=== PATIENT | male | born 1935 | race Caucasian/White ===

== ENCOUNTER 2019-12-08 13:11 | Emergency (ER) | payer MEDICARE, OTHER, SELFPAY ==
[2019-12-08 13:12] VITALS: BP 128/66; PULSE 76; RESP 20; TEMP 36.6; O2SAT 96; BMI 23.1
--- NOTE | 2019-12-08 13:36 | W.ED.WEAKNES ---
HPI - Weakness General: Chief complaint: Weakness Stated complaint: General Weakness Time Seen by Provider: 12/08/19 13:36 Source: patient Mode of arrival: ambulatory Limitations: no limitations History of Present Illness: HPI Narrative: Patient comes in by EMS for concerns of weakness. Patient reports that his home health nurse sent him over to be evaluated because he was acting different. Patient denies any concerns. Patient is chronically ill and lives at home with his son and his . His at this time though is in a detention recovering from a broken hip. Review of Systems General: Reports: 10 or more systems reviewed and unremarkable except in HPI and below Neuro: Reports: weakness in extremities PFSH ED PFSH: Statuses (acute, chronic, etc) shown below reflect problem list status as previously entered and may not be historically accurate Social History Smoking and tobacco status: never smoked Physical Exam Const: COMMON NORMALS: no apparent distress and oriented x3 GENERAL APPEARANCE: cooperative HENMT: COMMON NORMALS: normocephalic, external ears normal, EAC's normal, TM's normal bilaterally and external nose normal HEAD & SCALP: normal to inspection and normocephalic FACE & SINUS: normal facial exam NOSE: external nose normal GENERAL EAR: hearing not grossly impaired EXTERNAL EAR: Yes external ears normal EXTERNAL AUDITORY CANAL: EAC's normal TYMPANIC MEMBRANE: TM's normal bilaterally MOUTH: oral and palatal mucosa normal THROAT: posterior oropharynx normal Eye: COMMON NORMALS: PERRL and EOMs intact bilaterally PUPIL: Yes PERRL Neck/C-Spine: COMMON NORMALS: full ROM and no lymphadenopathy Lymph: LYMPHATIC: no lymphedema noted Chest: COMMONS NORMALS: inspection of chest normal and palpation of chest normal Resp: COMMON NORMALS: normal respiratory effort and clear to auscultation bilaterally AUSCULTATION: clear to auscultation bilaterally Cardio: COMMON NORMALS: regular rate and regular rhythm RATE: regular rate RHYTHM: regular rhythm GI: COMMON NORMALS: normal to inspection, nondistended, normoactive bowel sounds and non-tender : COMMON NORMALS: Yes no CVA tenderness BLADDER/KIDNEY EXAM: Yes no CVA tenderness Back/Pelvis: COMMON NORMALS: no CVA tenderness and thoracic and lumbar spine normal to inspection Extremity: NARRATIVE EXTREMITY EXAM: no swelling, lower extremity are weak bilaterally. wjw GENERAL: No edema Neuro: COMMON NORMALS: oriented x3, moves all extremities and no focal motor deficits Psych: COMMON NORMALS: mental status grossly normal and cooperative Skin: COMMON NORMALS: no rashes or lesions noted GENERAL SKIN EXAM: no rashes or lesions noted Course ED course: 1704, reviewed with Dayday Díaz, agreed to resume care of patient for completion of services. wjw Vital Signs: Vital signs: Vital Signs Temperature 97.9 F 12/08/19 13:12 Pulse Rate 76 12/08/19 13:12 Respiratory Rate 20 H 12/08/19 13:12 Blood Pressure 128/66 12/08/19 13:12 Pulse Oximetry 96 12/08/19 13:12 MDM - Weakness Lab Data: Labs: Lab Results 12/08/19 12/08/19 12/08/19 Range/Units 13:50 13:50 13:50 WBC 6.7 (4.0-10.0) 10^3/ uL RBC 3.71 L (4.1-5.3) 10^6/u L Hgb 12.2 (11.7-16.6) g/dL Hct 36.5 L (42.0-52.0) % MCV 98.4 H (80-94) fL MCH 32.9 (28.0-34.0) pg MCHC 33.4 (30.0-36.0) g/dL RDW 12.8 (12.1-15.1) % Plt Count 189 (130-400) 10^3/c mm MPV 9.9 (7.4-10.4) fL Neut % (Auto) 52.6 % Lymph % (Auto) 39.2 % [place] % (Auto) 6.6 % Eos % (Auto) 1.1 % Baso % (Auto) 0.3 % Neut # (Auto) 3.5 (1.8-7.7) 10^3/u L Lymph # (Auto) 2.6 (0.8-4.8) 10^3/u L [place] # (Auto) 0.4 (0.2-0.9) 10^3/u L Eos # (Auto) 0.1 (0.0-0.8) 10^3/u L Baso # (Auto) 0.0 (0.0-0.1) 10^3/u L Nucleated RBC % (a uto) 0 % Nucleated RBCs # 0.0 /100WBC Sodium 138 (136-145) mmol/L Potassium 4.3 (3.5-5.1) mmol/L Chloride 99 (98-107) mmol/L Carbon Dioxide 26 (22-29) mmol/L Anion Gap 17.3 (5-19) BUN 25 H (8-23) mg/dL Creatinine 1.1 (0.7-1.2) mg/dL Glucose 106 (74-106) mg/dL Lactic Acid (0.5-2.2) mmol/L Lactate 2.9 H (0.5-2.2) mmol/L Calcium 9.6 (8.8-10.2) mg/Dl Total Bilirubin 0.3 (0.15-1.2) mg/dL AST 15 (0-40) U/L ALT 12 (0-41) U/L Alkaline Phosphata se 44 (40-130) IU/L Troponin T Baselin e (0-15) ng/mL Troponin T 120 Min [place] (0-15) ng/mL Delta Troponin T (0-10) ABS# Total Protein 6.8 (6.6-8.7) g/dL Albumin 3.9 (3.5-5.2) g/dL Globulin 2.9 (1.3-4.6) g/dL Urine Color (Yellow) Urine Appearance (CLEAR) Urine pH (5-7) Ur Specific Gravit y (1.005-1.030) Urine Protein (Negative) Urine Glucose (UA) (Normal) Urine Ketones (Negative) Urine Occult Blood (Negative) Urine Nitrate (Negative) Urine Bilirubin (NEGATIVE) Urine Urobilinogen (Negative) mg/dL Ur Leukocyte Mayra ase (Negative) Urine RBC (0-2) /hpf Urine WBC (0-5) /hpf Ur Squamous Epith Cells (0-5) Ur Transition Epit h Cell /hpf Triple Phos Kiana ls /hpf Urine Bacteria (NONE) 12/08/19 12/08/19 12/08/19 Range/Units 13:50 14:41 15:44 WBC (4.0-10.0) 10^3/ uL RBC (4.1-5.3) 10^6/u L Hgb (11.7-16.6) g/dL Hct (42.0-52.0) % MCV (80-94) fL MCH (28.0-34.0) pg MCHC (30.0-36.0) g/dL RDW (12.1-15.1) % Plt Count (130-400) 10^3/c mm MPV (7.4-10.4) fL Neut % (Auto) % Lymph % (Auto) % [place] % (Auto) % Eos % (Auto) % Baso % (Auto) % Neut # (Auto) (1.8-7.7) 10^3/u L Lymph # (Auto) (0.8-4.8) 10^3/u L [place] # (Auto) (0.2-0.9) 10^3/u L Eos # (Auto) (0.0-0.8) 10^3/u L Baso # (Auto) (0.0-0.1) 10^3/u L Nucleated RBC % (a uto) % Nucleated RBCs # /100WBC Sodium (136-145) mmol/L Potassium (3.5-5.1) mmol/L Chloride (98-107) mmol/L Carbon Dioxide (22-29) mmol/L Anion Gap (5-19) BUN (8-23) mg/dL Creatinine (0.7-1.2) mg/dL Glucose (74-106) mg/dL Lactic Acid 3.0 H (0.5-2.2) mmol/L Lactate (0.5-2.2) mmol/L Calcium (8.8-10.2) mg/Dl Total Bilirubin (0.15-1.2) mg/dL AST (0-40) U/L ALT (0-41) U/L Alkaline Phosphata se (40-130) IU/L Troponin T Baselin e 54 H (0-15) ng/mL Troponin T 120 Min [place] 44.69 H (0-15) ng/mL Delta Troponin T -9.31 L (0-10) ABS# Total Protein (6.6-8.7) g/dL Albumin (3.5-5.2) g/dL Globulin (1.3-4.6) g/dL Urine Color (Yellow) Urine Appearance (CLEAR) Urine pH (5-7) Ur Specific Gravit y (1.005-1.030) Urine Protein (Negative) Urine Glucose (UA) (Normal) Urine Ketones (Negative) Urine Occult Blood (Negative) Urine Nitrate (Negative) Urine Bilirubin (NEGATIVE) Urine Urobilinogen (Negative) mg/dL Ur Leukocyte Mayra ase (Negative) Urine RBC (0-2) /hpf Urine WBC (0-5) /hpf Ur Squamous Epith Cells (0-5) Ur Transition Epit h Cell /hpf Triple Phos [place]iana ls /hpf Urine Bacteria (NONE) 12/08/19 Range/Units 16:36 WBC (4.0-10.0) 10^3/ uL RBC (4.1-5.3) 10^6/u L Hgb (11.7-16.6) g/dL Hct (42.0-52.0) % MCV (80-94) fL MCH (28.0-34.0) pg MCHC (30.0-36.0) g/dL RDW (12.1-15.1) % Plt Count (130-400) 10^3/c mm MPV (7.4-10.4) fL Neut % (Auto) % Lymph % (Auto) % [place] % (Auto) % Eos % (Auto) % Baso % (Auto) % Neut # (Auto) (1.8-7.7) 10^3/u L Lymph # (Auto) (0.8-4.8) 10^3/u L [place] # (Auto) (0.2-0.9) 10^3/u L Eos # (Auto) (0.0-0.8) 10^3/u L Baso # (Auto) (0.0-0.1) 10^3/u L Nucleated RBC % (a uto) % Nucleated RBCs # /100WBC Sodium (136-145) mmol/L Potassium (3.5-5.1) mmol/L Chloride (98-107) mmol/L Carbon Dioxide (22-29) mmol/L Anion Gap (5-19) BUN (8-23) mg/dL Creatinine (0.7-1.2) mg/dL Glucose (74-106) mg/dL Lactic Acid (0.5-2.2) mmol/L Lactate (0.5-2.2) mmol/L Calcium (8.8-10.2) mg/Dl Total Bilirubin (0.15-1.2) mg/dL AST (0-40) U/L ALT (0-41) U/L Alkaline Phosphata se (40-130) IU/L Troponin T Baselin e (0-15) ng/mL Troponin T 120 Min [place] (0-15) ng/mL Delta Troponin T (0-10) ABS# Total Protein (6.6-8.7) g/dL Albumin (3.5-5.2) g/dL Globulin (1.3-4.6) g/dL Urine Color Yellow (Yellow) Urine Appearance Cloudy (CLEAR) Urine pH 8 H (5-7) Ur Specific Gravit y 1.015 (1.005-1.030) Urine Protein Neg (Negative) Urine Glucose (UA) Norm (Normal) Urine Ketones Negative (Negative) Urine Occult Blood 2+ H (Negative) Urine Nitrate Negative (Negative) Urine Bilirubin Neg (NEGATIVE) Urine Urobilinogen Norm (Negative) mg/dL Ur Leukocyte Mayra ase Trace H (Negative) Urine RBC 0-4 H (0-2) /hpf Urine WBC 15-25 H (0-5) /hpf Ur Squamous Epith Cells Rare (0-5) Ur Transition Epit h Cell 5-10 /hpf Triple Phos Kiana ls 5-10 H /hpf Urine Bacteria 3+ H (NONE) Sign Out Sign Out Data: Sign Out Comment: Awaiting repeat lactate, and UA, if improved should go home, [email or web address] Last updated by Theo Fernandez FNP at 12/08/19 17:02 Coding Level of Care Code ED Internal Grinder for Chg Fwd Exam Problem Focused
--- NOTE | 2019-12-08 13:42 | XR_ITS ---
WS: [id number] Portable AP upright chest, 12/08/2019 Clinical Data: weakness Comparison: Portable chest, 09/06/2018. Findings: No nodules, masses or effusions are seen. The heart is normal. The pulmonary vascularity is not increased. No pneumonia or pneumothorax is seen. The diaphragms are flattened. The aortic arch a nd descending aorta show tortuosity. An anterior cervical disc fusion has been performed at the C6-C7 level. XR/XR chest 1V portable [id number] Impression: Atherosclerosis and hyperinflation.
--- NOTE | 2019-12-08 13:43 | ECG_ITS ---
Measurements Intervals [place] Rate: 73 P: 47 IA: 187 QRS: 27 QRSD: 80 T: 54 QT: 368 QTc: 406 SINUS RHYTHM WITH MARKED SINUS ARRHYTHMIA SEPTAL MYOCARDIAL INFARCTION , OF INDETERMINATE AGE [40+ ms Q WAVE IN V1/V2] Compared to ECG 12/21/2017 19:28:29 Myocardial infarct finding now present Electronically Signed On 12-08-2019 19:28:18 AUDIT PRACTICE INTERN by Molly Quiroz M.D. [email or web address] f
--- NOTE | 2019-12-08 13:44 | CT_ITS ---
WS: [id number] CT HEAD NONCONTRAST HISTORY: AMS TECHNIQUE: Contiguous axial imaging performed through the brain in 2.5 mm imaging. Bone and soft tiss ue windows. Sagittal and coronal reformats reviewed. All CT scans at [facility] use at ast one of these dose optimization techniques: automated exposure control; mA and/or kV adjustment pe r patient size (includes targeted exams where dose is matched to clinical indication); or iterative r econstruction. DLP: 899.24 mGy.cm COMPARISON: None available. No acute intracranial hemorrhage, midline shift or mass effect. Moderate bilateral symmetrical atrophy. Moderate chronic microvascular ischemic disease. CSF collecti on in the posterior fossa crosses the midline. The vermis is still intact. Ventricles: Mild enlargement of the ventricles. No inferior displacement of cerebellar tonsils. Paranasal sinuses: As visualized are clear. Mastoid air cells: Well pneumatized. Calvarium and scalp: Skull is intact with no soft tissue edema or swelling. CT/CT head wo con* [id number] IMPRESSION: 1. No acute intracranial hemorrhage or edema. 2. Moderate atrophy and chronic ischemic disease. 3. Posterior fossa arachnoid cyst.
[2019-12-08 14:06] LABS: Basophils % 0.3 %; Eosinophils # 0.1 10^3/uL (0.0-0.8); Eosinophils % 1.1 %; Hematocrit 36.5 % (42.0-52.0); Hemoglobin 12.2 g/dL (11.7-16.6); Lymphocytes # 2.6 10^3/uL (0.8-4.8); Lymphocytes % 39.2 %; Mean Corpuscular HGB Conc 33.4 g/dL (30.0-36.0); Mean Corpuscular Hemoglobin 32.9 pg (28.0-34.0); Mean Corpuscular Volume 98.4 fL (80-94); Mean Platelet Volume 9.9 fL (7.4-10.4); Monocytes # 0.4 10^3/uL (0.2-0.9); Monocytes % 6.6 %; Neutrophils # 3.5 10^3/uL (1.8-7.7); Neutrophils % 52.6 %; Nucleated Red Blood Cells % 0 %; Platelet Count 189 10^3/cmm (130-400); Red Blood Count 3.71 10^6/uL (4.1-5.3); Red Cell Distribution Width 12.8 % (12.1-15.1); White Blood Count 6.7 10^3/uL (4.0-10.0)
[2019-12-08 14:24] LABS: Alanine Aminotransferase 12 U/L (0-41); Albumin Level 3.9 g/dL (3.5-5.2); Alkaline Phosphatase 44 IU/L (40-130); Anion Gap 17.3 (5-19); Aspartate Amino Transferase 15 U/L (0-40); Blood Urea Nitrogen 25 mg/dL (8-23); Calcium 9.6 mg/Dl (8.8-10.2); Carbon Dioxide 26 mmol/L (22-29); Chloride 99 mmol/L (98-107); Globulin 2.9 g/dL (1.3-4.6); Glucose 106 mg/dL (74-106); Lactate (Lactic Acid level) 2.9 mmol/L (0.5-2.2); Potassium 4.3 mmol/L (3.5-5.1); Sodium 138 mmol/L (136-145); Total Bilirubin 0.3 mg/dL (0.15-1.2); Total Protein 6.8 g/dL (6.6-8.7); Troponin(5th) Baseline 54 ng/mL (0-15)
--- NOTE | 2019-12-08 15:05 | PC.NURSE ---
Restarted normal saline IV fluids EMS initiated prior to arrival per order
--- NOTE | 2019-12-08 15:43 | ECG_ITS ---
Measurements Intervals [place] Rate: 69 P: 56 ND: 183 QRS: 39 QRSD: 88 T: 62 QT: 378 QTc: 407 SINUS RHYTHM WITH MARKED SINUS ARRHYTHMIA SEPTAL MYOCARDIAL INFARCTION , OF INDETERMINATE AGE [40+ ms Q WAVE IN V1/V2] Compared to ECG 12/21/2017 19:28:29 Myocardial infarct finding now present Electronically Signed On 12-08-2019 19:37:00 SOCK LINER by Molly Quiroz M.D. [id number] f
[2019-12-08 16:03] LABS: Troponin 5 2HR 44.69 ng/mL (0-15)
[2019-12-08 16:08] LABS: Troponin 5 2HR Delta -9.31 ABS# (0-10)
[2019-12-08 16:30] LABS: Reflex Lactate Order Y
[2019-12-08 17:05] LABS: Urine Appearance Cloudy (CLEAR); Urine Color Yellow (Yellow)
[2019-12-08 17:06] LABS: Specific Gravity, Urine 1.015 (1.005-1.030); pH Urine 8 (5-7)
[2019-12-08 17:07] LABS: Bilirubin Urine Neg (NEGATIVE); Blood Urine 2+ (Negative); Glucose Urine UA Norm (Normal); Ketones Urine Negative (Negative); Leukocyte Esterase Urine Trace (Negative); Nitrate Urine Negative (Negative); Protein Urine Neg (Negative); RBC Urine 0-4 /hpf (0-2); Squamous Epithelial Cell Urine RARE (0-5); Urobilinogen Urine Norm (Negative); WBC Urine 15-25 /hpf (0-5)
[2019-12-08 17:08] LABS: Add Urine Culture? Yes; Bacteria Urine 3+
--- NOTE | 2019-12-08 19:25 | ED_ITS ---
HPI - Weakness General: Chief complaint: Weakness Stated complaint: General Weakness Time Seen by Provider: 12/08/19 13:36 Source: patient Mode of arrival: ambulatory Limitations: no limitations History of Present Illness: HPI Narrative: Received report from Jhony Fernandez at 1700 waiting a lactate level. Spoke with Dr. Mendoza. Recommends admission. FORMERLY [facility], [facility]–1983 ED PFSH: Statuses (acute, chronic, etc) shown below reflect problem list status as previously entered and may not be historically accurate Social History Smoking and tobacco status: never smoked Course 2 Vital Signs: Vital signs: Vital Signs Temperature 97.9 F 12/08/19 13:12 Pulse Rate 76 12/08/19 13:12 Respiratory Rate 20 H 12/08/19 13:12 Blood Pressure 128/66 12/08/19 13:12 Pulse Oximetry 96 12/08/19 13:12 MDM - Weakness Lab Data: Labs: Lab Results 12/08/19 12/08/19 12/08/19 Range/Units 13:50 13:50 13:50 WBC 6.7 (4.0-10.0) 10^3/ uL RBC 3.71 L (4.1-5.3) 10^6/u L Hgb 12.2 (11.7-16.6) g/dL Hct 36.5 L (42.0-52.0) % MCV 98.4 H (80-94) fL MCH 32.9 (28.0-34.0) pg MCHC 33.4 (30.0-36.0) g/dL RDW 12.8 (12.1-15.1) % Plt Count 189 (130-400) 10^3/c mm MPV 9.9 (7.4-10.4) fL Neut % (Auto) 52.6 % Lymph % (Auto) 39.2 % [place] % (Auto) 6.6 % Eos % (Auto) 1.1 % Baso % (Auto) 0.3 % Neut # (Auto) 3.5 (1.8-7.7) 10^3/u L Lymph # (Auto) 2.6 (0.8-4.8) 10^3/u L [place] # (Auto) 0.4 (0.2-0.9) 10^3/u L Eos # (Auto) 0.1 (0.0-0.8) 10^3/u L Baso # (Auto) 0.0 (0.0-0.1) 10^3/u L Nucleated RBC % (a uto) 0 % Nucleated RBCs # 0.0 /100WBC Sodium 138 (136-145) mmol/L Potassium 4.3 (3.5-5.1) mmol/L Chloride 99 (98-107) mmol/L Carbon Dioxide 26 (22-29) mmol/L Anion Gap 17.3 (5-19) BUN 25 H (8-23) mg/dL Creatinine 1.1 (0.7-1.2) mg/dL Glucose 106 (74-106) mg/dL Lactic Acid (0.5-2.2) mmol/L Lactate 2.9 H (0.5-2.2) mmol/L Calcium 9.6 (8.8-10.2) mg/Dl Total Bilirubin 0.3 (0.15-1.2) mg/dL AST 15 (0-40) U/L ALT 12 (0-41) U/L Alkaline Phosphata se 44 (40-130) IU/L Troponin T Baselin e (0-15) ng/mL Troponin T 120 Min [place] (0-15) ng/mL Delta Troponin T (0-10) ABS# Total Protein 6.8 (6.6-8.7) g/dL Albumin 3.9 (3.5-5.2) g/dL Globulin 2.9 (1.3-4.6) g/dL Urine Color (Yellow) Urine Appearance (CLEAR) Urine pH (5-7) Ur Specific Gravit y (1.005-1.030) Urine Protein (Negative) Urine Glucose (UA) (Normal) Urine Ketones (Negative) Urine Occult Blood (Negative) Urine Nitrate (Negative) Urine Bilirubin (NEGATIVE) Urine Urobilinogen (Negative) mg/dL Ur Leukocyte Mayra ase (Negative) Urine RBC (0-2) /hpf Urine WBC (0-5) /hpf Ur Squamous Epith Cells (0-5) Ur Transition Epit h Cell /hpf Triple Phos Kiana ls /hpf Urine Bacteria (NONE) 12/08/19 12/08/19 12/08/19 Range/Units 13:50 14:41 15:44 WBC (4.0-10.0) 10^3/ uL RBC (4.1-5.3) 10^6/u L Hgb (11.7-16.6) g/dL Hct (42.0-52.0) % MCV (80-94) fL MCH (28.0-34.0) pg MCHC (30.0-36.0) g/dL RDW (12.1-15.1) % Plt Count (130-400) 10^3/c mm MPV (7.4-10.4) fL Neut % (Auto) % Lymph % (Auto) % [place] % (Auto) % Eos % (Auto) % Baso % (Auto) % Neut # (Auto) (1.8-7.7) 10^3/u L Lymph # (Auto) (0.8-4.8) 10^3/u L [place] # (Auto) (0.2-0.9) 10^3/u L Eos # (Auto) (0.0-0.8) 10^3/u L Baso # (Auto) (0.0-0.1) 10^3/u L Nucleated RBC % (a uto) % Nucleated RBCs # /100WBC Sodium (136-145) mmol/L Potassium (3.5-5.1) mmol/L Chloride (98-107) mmol/L Carbon Dioxide (22-29) mmol/L Anion Gap (5-19) BUN (8-23) mg/dL Creatinine (0.7-1.2) mg/dL Glucose (74-106) mg/dL Lactic Acid 3.0 H (0.5-2.2) mmol/L Lactate (0.5-2.2) mmol/L Calcium (8.8-10.2) mg/Dl Total Bilirubin (0.15-1.2) mg/dL AST (0-40) U/L ALT (0-41) U/L Alkaline Phosphata se (40-130) IU/L Troponin T Baselin e 54 H (0-15) ng/mL Troponin T 120 Min [place] 44.69 H (0-15) ng/mL Delta Troponin T -9.31 L (0-10) ABS# Total Protein (6.6-8.7) g/dL Albumin (3.5-5.2) g/dL Globulin (1.3-4.6) g/dL Urine Color (Yellow) Urine Appearance (CLEAR) Urine pH (5-7) Ur Specific Gravit y (1.005-1.030) Urine Protein (Negative) Urine Glucose (UA) (Normal) Urine Ketones (Negative) Urine Occult Blood (Negative) Urine Nitrate (Negative) Urine Bilirubin (NEGATIVE) Urine Urobilinogen (Negative) mg/dL Ur Leukocyte [place]ra ase (Negative) Urine RBC (0-2) /hpf Urine WBC (0-5) /hpf Ur Squamous Epith Cells (0-5) Ur Transition Epit h Cell /hpf Triple Phos Kiana ls /hpf Urine Bacteria (NONE) 12/08/19 Range/Units 16:36 WBC (4.0-10.0) 10^3/ uL RBC (4.1-5.3) 10^6/u L Hgb (11.7-16.6) g/dL Hct (42.0-52.0) % MCV (80-94) fL MCH (28.0-34.0) pg MCHC (30.0-36.0) g/dL RDW (12.1-15.1) % Plt Count (130-400) 10^3/c mm MPV (7.4-10.4) fL Neut % (Auto) % Lymph % (Auto) % [place] % (Auto) % Eos % (Auto) % Baso % (Auto) % Neut # (Auto) (1.8-7.7) 10^3/u L Lymph # (Auto) (0.8-4.8) 10^3/u L [place] # (Auto) (0.2-0.9) 10^3/u L Eos # (Auto) (0.0-0.8) 10^3/u L Baso # (Auto) (0.0-0.1) 10^3/u L Nucleated RBC % (a uto) % Nucleated RBCs # /100WBC Sodium (136-145) mmol/L Potassium (3.5-5.1) mmol/L Chloride (98-107) mmol/L Carbon Dioxide (22-29) mmol/L Anion Gap (5-19) BUN (8-23) mg/dL Creatinine (0.7-1.2) mg/dL Glucose (74-106) mg/dL Lactic Acid (0.5-2.2) mmol/L Lactate (0.5-2.2) mmol/L Calcium (8.8-10.2) mg/Dl Total Bilirubin (0.15-1.2) mg/dL AST (0-40) U/L ALT (0-41) U/L Alkaline Phosphata se (40-130) IU/L Troponin T Baselin e (0-15) ng/mL Troponin T 120 Min [place] (0-15) ng/mL Delta Troponin T (0-10) ABS# Total Protein (6.6-8.7) g/dL Albumin (3.5-5.2) g/dL Globulin (1.3-4.6) g/dL Urine Color Yellow (Yellow) Urine Appearance Cloudy (CLEAR) Urine pH 8 H (5-7) Ur Specific Gravit y 1.015 (1.005-1.030) Urine Protein Neg (Negative) Urine Glucose (UA) Norm (Normal) Urine Ketones Negative (Negative) Urine Occult Blood 2+ H (Negative) Urine Nitrate Negative (Negative) Urine Bilirubin Neg (NEGATIVE) Urine Urobilinogen Norm (Negative) mg/dL Ur Leukocyte Mayra ase Trace H (Negative) Urine RBC 0-4 H (0-2) /hpf Urine WBC 15-25 H (0-5) /hpf Ur Squamous Epith Cells Rare (0-5) Ur Transition Epit h Cell 5-10 /hpf Triple Phos Kiana ls 5-10 H /hpf Urine Bacteria 3+ H (NONE) Discharge Plan Discharge Condition: Stable Referrals: Nneka Lawrence MD [Primary Care Provider] - Coding Level of Care Code ED Coater Slate for Denton Lott
--- NOTE | 2019-12-08 19:43 | ECG_ITS ---
Measurements Intervals [place] Rate: 120 P: TN: 0 QRS: 99 QRSD: 107 T: 61 QT: 329 QTc: 467 ATRIAL FIBRILLATION WITH RAPID VENTRICULAR RESPONSE BORDERLINE RIGHT AXIS DEVIATION LOW QRS VOLTAGE IN EXTREMITY LEADS INCOMPLETE RIGHT BUNDLE BRANCH BLOCK Compared to ECG 12/08/2019 16:11:09 Low QRS voltage now present Incomplete right bundle-branch block now present Sinus rhythm no longer present Sinus arrhythmia no longer present Myocardial infarct finding no longer present Electronically Signed On 12-09-2019 13:41:54 FOREIGN DIPLOMAT by Anaya Bhatia M.D. [id number]
[2019-12-08 21:02] LABS: Troponin 5 6HR 56.27 ng/L (0-15); Troponin 5 6HR Delta 2.27 ng/L (0-12)
== END 2019-12-08 20:09 | disposition left against medical advice (07) ==
PROVIDERS: Emergency Provider Nurse Practitioner Family; Family Provider Family Medicine; PCP Family Medicine
DX: R53.1 Weakness (principal)
CPT/HCPCS: 36415; 70450; 71045; 80053; 81001; 83605; 84484; 85025; 87040; 87077; 87086; 87186; 93005; 99282

== ENCOUNTER → 2020-01-08 09:58 | Outpatient (BNVA) | payer MEDICARE, OTHER, SELFPAY | PROVIDERS: Family Provider Family Medicine; PCP Family Medicine; Visit Provider Family Medicine | DX: I50.9 Heart failure, unspecified (principal); I50.42 Chronic combined systolic (congestive) and diastolic (congestive) heart failure; E11.42 Type 2 diabetes mellitus with diabetic polyneuropathy; Z79.4 Long term (current) use of insulin; N18.3 Chronic kidney disease, stage 3 (moderate); G62.9 Polyneuropathy, unspecified; G25.81 Restless legs syndrome; L89.151 Pressure ulcer of sacral region, stage 1; R29.898 Other symptoms and signs involving the musculoskeletal system | CPT/HCPCS: 80048; 83036 ==

== ENCOUNTER → 2020-02-10 13:27 | Outpatient (BNVA) | payer MEDICARE, OTHER, SELFPAY | PROVIDERS: Family Provider Family Medicine; PCP Family Medicine; Visit Provider Family Medicine | DX: E11.9 Type 2 diabetes mellitus without complications (principal); I50.9 Heart failure, unspecified; G62.9 Polyneuropathy, unspecified; R30.0 Dysuria; G25.81 Restless legs syndrome; I11.0 Hypertensive heart disease with heart failure | CPT/HCPCS: 80053; 81000; 87077; 87086; 87186 ==

== ENCOUNTER → 2020-04-12 13:25 | Outpatient (BNVA) | payer MEDICARE, OTHER, SELFPAY | PROVIDERS: Family Provider Family Medicine; PCP Family Medicine; Visit Provider Family Medicine | DX: R30.0 Dysuria; G25.81 Restless legs syndrome; E11.42 Type 2 diabetes mellitus with diabetic polyneuropathy; Z79.4 Long term (current) use of insulin; I50.42 Chronic combined systolic (congestive) and diastolic (congestive) heart failure; J44.9 Chronic obstructive pulmonary disease, unspecified; N18.3 Chronic kidney disease, stage 3 (moderate); F32.9 Major depressive disorder, single episode, unspecified; R63.0 Anorexia; I13.0 Hypertensive heart and chronic kidney disease with heart failure and stage 1 through stage 4 chronic kidney disease, or unspecified chronic kidney disease; E11.22 Type 2 diabetes mellitus with diabetic chronic kidney disease | CPT/HCPCS: 80053; 80061; 83036; 85025 ==

== ENCOUNTER → 2020-05-17 10:05 | Outpatient (BNVA) | payer MEDICARE, OTHER, SELFPAY | PROVIDERS: Family Provider Family Medicine; PCP Family Medicine; Visit Provider Family Medicine | DX: N30.01 Acute cystitis with hematuria (principal); N18.3 Chronic kidney disease, stage 3 (moderate); E11.42 Type 2 diabetes mellitus with diabetic polyneuropathy; Z79.4 Long term (current) use of insulin; I50.42 Chronic combined systolic (congestive) and diastolic (congestive) heart failure; R63.0 Anorexia; F32.1 Major depressive disorder, single episode, moderate; E11.22 Type 2 diabetes mellitus with diabetic chronic kidney disease | CPT/HCPCS: 80053; 81000; 87077; 87086; 87186 ==

== ENCOUNTER → 2020-06-29 14:45 | Outpatient (BNVA) | payer MEDICARE, OTHER, SELFPAY | PROVIDERS: Family Provider Family Medicine; PCP Family Medicine; Visit Provider Nurse Practitioner Family | DX: R33.9 Retention of urine, unspecified (principal); N39.0 Urinary tract infection, site not specified; N39.41 Urge incontinence | CPT/HCPCS: 80053; 81001; 87077; 87086 ==

== ENCOUNTER → 2020-07-12 13:35 | Outpatient (BNVA) | payer MEDICARE, OTHER, SELFPAY | PROVIDERS: Family Provider Family Medicine; PCP Family Medicine; Visit Provider Family Medicine | DX: E11.42 Type 2 diabetes mellitus with diabetic polyneuropathy (principal); R30.0 Dysuria; I13.0 Hypertensive heart and chronic kidney disease with heart failure and stage 1 through stage 4 chronic kidney disease, or unspecified chronic kidney disease; I50.42 Chronic combined systolic (congestive) and diastolic (congestive) heart failure; N18.3 Chronic kidney disease, stage 3 (moderate); G25.81 Restless legs syndrome; E11.22 Type 2 diabetes mellitus with diabetic chronic kidney disease; Z79.4 Long term (current) use of insulin; J44.9 Chronic obstructive pulmonary disease, unspecified; R29.898 Other symptoms and signs involving the musculoskeletal system; M54.10 Radiculopathy, site unspecified | CPT/HCPCS: 80048; 83036 ==

== ENCOUNTER → 2020-10-11 13:32 | Outpatient (BNVA) | payer MEDICARE, OTHER, SELFPAY | PROVIDERS: Family Provider Family Medicine; PCP Family Medicine; Visit Provider Family Medicine | DX: E11.42 Type 2 diabetes mellitus with diabetic polyneuropathy (principal); E11.9 Type 2 diabetes mellitus without complications; Z79.4 Long term (current) use of insulin | CPT/HCPCS: 80048; 83036 ==

== ENCOUNTER 2020-12-15 13:45 | Outpatient (CLI) | payer MEDICARE, OTHER, SELFPAY | END 2020-12-15 13:46 | disposition home or self-care (01) | LOC: WOUND 13:46 | PROVIDERS: Family Provider Family Medicine; PCP Family Medicine; Visit Provider Thoracic Surgery (Cardiothoracic Vascular Surgery) | DX: E11.621 Type 2 diabetes mellitus with foot ulcer (principal); L97.412 Non-pressure chronic ulcer of right heel and midfoot with fat layer exposed | CPT/HCPCS: 11042; G0463 ==

== ENCOUNTER 2020-12-27 11:39 | Outpatient (CLI) | payer MEDICARE, OTHER, SELFPAY ==
--- NOTE | 2020-12-27 | USCV_ITS ---
Martin Schultz Age: 85 Gender: M : 1935 Exam Date: 12/27/2020 12:10 Ordering Phys: Theo Cisneros MD (Andy) Technologist: Janette Jackson Exam Location: [facility] [place] Indication: FOOT ULCER Risk Factors: Previous Vascular Surgery: RIGHT LEFT BP: 154.0 / 77.00 BP: 153.0/ 83.00 0 0 Waveform Velocity (cm/s) Velocity (cm/s) Waveform Triphasic 51.1 Iliac Prox 73.0 Biphasic Biphasic 56.0 Iliac Mid 62.8 Biphasic Biphasic 49.8 Iliac Distal 58.2 Biphasic Biphasic 42.8 M60A2 ARMOR CREWMAN 56.2 Biphasic Biphasic 70.1 SFA Prox 59.6 Biphasic Biphasic 79.5 SFA Mid 117.5 Biphasic Biphasic SFA Dist Biphasic 56.4 70.0 Biphasic 43.2 POP 41.4 Biphasic Monophasic 53.1 DIMENSION STONE QUARRY SUPERVISOR 271.5 Monophasic Monophasic 86.7 DPA 24.4 Monophasic 0.9 GIRISH 0.4 FINDINGS RT DIMENSION STONE QUARRY SUPERVISOR >220 RT DPA 144 LT DIMENSION STONE QUARRY SUPERVISOR >220 LT DPA 56 Borderline low GIRISH on the right side of 0.9 Markedly diminished resting GIRISH of 0.4 on the left side CONCLUSIONS 1. Abnormal GIRISH on the left side, suggesting severe peripheral artery disease, possibly involving the infrapopliteal vessels on the left side. 2. Borderline low resting GIRISH on the right side, suggestive of mild peripheral artery disease Compared to the study from 04/19/2017, there is significant decline in the resting GIRISH on the left side Dr Molly Quiroz MD [facility] Edited by: CV Filler Spreader (Electronically Signed) Final Date: 27 December 2020 19:29 Amended: 28 December 2020 10:31 C
== END 2020-12-27 11:40 | disposition home or self-care (01) ==
LOC: US 11:41
PROVIDERS: PCP Family Medicine; Visit Provider Thoracic Surgery (Cardiothoracic Vascular Surgery)
DX: E11.621 Type 2 diabetes mellitus with foot ulcer (principal)
CPT/HCPCS: 93925

== ENCOUNTER 2020-12-29 14:45 | Outpatient (CLI) | payer MEDICARE, OTHER, SELFPAY | END 2020-12-29 14:46 | disposition home or self-care (01) | LOC: WOUND 14:46 | PROVIDERS: PCP Family Medicine; Visit Provider Thoracic Surgery (Cardiothoracic Vascular Surgery) | DX: E11.621 Type 2 diabetes mellitus with foot ulcer (principal); L97.412 Non-pressure chronic ulcer of right heel and midfoot with fat layer exposed; S80.812A Abrasion, left lower leg, initial encounter; X58.XXXA Exposure to other specified factors, initial encounter | CPT/HCPCS: 11042; L3260 ==

== ENCOUNTER 2021-01-19 13:49 | Outpatient (CLI) | payer MEDICARE, OTHER, SELFPAY | END 2021-01-19 13:50 | disposition home or self-care (01) | LOC: WOUND 13:51 | PROVIDERS: PCP Family Medicine; Visit Provider Thoracic Surgery (Cardiothoracic Vascular Surgery) | DX: E11.621 Type 2 diabetes mellitus with foot ulcer (principal); L97.412 Non-pressure chronic ulcer of right heel and midfoot with fat layer exposed | CPT/HCPCS: 11042 ==

== ENCOUNTER → 2021-01-20 11:36 | Outpatient (BNVA) | payer MEDICARE, OTHER, SELFPAY | PROVIDERS: PCP Family Medicine; Visit Provider Family Medicine | DX: I50.9 Heart failure, unspecified (principal); Z86.718 Personal history of other venous thrombosis and embolism; G62.9 Polyneuropathy, unspecified; I10 Essential (primary) hypertension; E11.9 Type 2 diabetes mellitus without complications; R63.0 Anorexia; F32.9 Major depressive disorder, single episode, unspecified; E11.42 Type 2 diabetes mellitus with diabetic polyneuropathy; G25.81 Restless legs syndrome; Z79.4 Long term (current) use of insulin | CPT/HCPCS: 80048; 83036 ==

== ENCOUNTER 2021-01-24 16:43 | Inpatient (IN) | payer MEDICARE, OTHER, SELFPAY ==
[2021-01-24] VITALS (23 sets, daily range): BP systolic 86–99; BP diastolic 45–63; PULSE 81–112; RESP 10–20; TEMP 36.1–36.6; O2SAT 92–99; BMI 25.0
--- NOTE | 2021-01-24 17:12 | XRR_ITS ---
PROCEDURE INFORMATION: Exam: XR Chest Exam date and time: 01/24/2021 5:28 PM Age: 85 years old Clinical indication: Cough and dyspnea; Additional info: Dyspnea/cough TECHNIQUE: Imaging protocol: XR of the chest Views: 1 view. COMPARISON: CR XR chest 1V portable [id number] 12/08/2019 2:13 PM FINDINGS: Lungs: Bilateral lower lung areas of scarring and or atelectasis. Pleural spaces: Unremarkable. No pleural effusion. No pneumothorax. Heart/Mediastinum: Cardiomediastinal silhouette is similar. Vasculature: Calcified thoracic aorta. Bones/joints: Plate fixation lower cervical spine. Surgical changes of the right shoulder. Degenerative changes of the spine. XR/XR chest 1V portable [id number] IMPRESSION: Areas of atelectasis or scarring lower lungs increased since the previous chest.
--- NOTE | 2021-01-24 17:12 | ECG_ITS ---
[facility] Test Date: 2021-01-24 Pat Name: Martin Schultz Department: Room: Gender: Male Motor Tester: : 1935 Requested By: Rohith Dee Order Number: [id number] Ashok MD: Mark Kay M.D. Measurements Intervals [place] Rate: 88 P: 41 UT: 173 QRS: 12 QRSD: 85 T: 60 QT: 356 QTc: 432 Interpretive Statements SINUS RHYTHM WITH OCCASIONAL ECTOPIC PREMATURE COMPLEXES LOW QRS VOLTAGE IN PRECORDIAL LEADS [QRS DEFLECTION < 1.0 mV IN CHEST LEADS] Compared to ECG 12/08/2019 19:58:50 Atrial fibrillation no longer present Incomplete right bundle-branch block no longer present Electronically Signed On 01-24-2021 18:48:30 FILENET P[employer] DEVELOPER by Mark Kay M.D. [id number]
--- NOTE | 2021-01-24 17:14 | CTR_ITS ---
PROCEDURE INFORMATION: Exam: CT Head Without Contrast Exam date and time: 01/24/2021 5:23 PM Age: 85 years old Clinical indication: Altered mental status/memory loss; Additional info: AMS, blood thinners TECHNIQUE: Imaging protocol: Computed tomography of the head without contrast. Total images: 210 Radiation optimization: All CT scans at this facility use at least one of these dose optimization techniques: automated exposure control; mA and/or kV adjustment per patient size (includes targeted exams where dose is matched to clinical indication); or iterative reconstruction. COMPARISON: CT head wo con* [id number] 12/08/2019 4:13 PM RADIATION DOSE METRICS: Total DLP (mGy-cm): 910.05 FINDINGS: Brain: No evidence of active or acute intracranial pathologic process, hemorrhage, or trauma. Moderate small vessel ischemic disease with senile periventricular leukomalacia. Cerebral and cerebellar atrophy with ventricular dilatation not inconsistent with the patient's chronological age. 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 No mass effect. No midline shift. Tiny antecedent lacunar infarction right thalamus. Cerebral ventricles: No obstructive ventriculomegaly. Bones/joints: Unremarkable. No acute fracture. Paranasal sinuses: Visualized sinuses are unremarkable. No fluid levels. Mastoid air cells: Visualized mastoid air cells are well aerated. Soft tissues: Unremarkable. CT/CT head wo con* [id number] IMPRESSION: No evidence of active or acute intracranial pathologic process, hemorrhage, or trauma. Radiation Dose CTDIVOL = (mGy): DLP = 910.05 (mGy-cm)
[2021-01-24 17:29] LABS: Basophils # 0.1 10^3/uL (0.0-0.1); Basophils % 0.5 %; Eosinophils % 0.4 %; Hematocrit 29.1 % (42.0-52.0); Hemoglobin 9.3 g/dL (11.7-16.6); Lymphocytes # 2.9 10^3/uL (0.8-4.8); Lymphocytes % 25.8 %; Mean Corpuscular Hemoglobin 32.2 pg (28.0-34.0); Mean Corpuscular Volume 100.7 fL (80-94); Mean Platelet Volume 10.5 fL (7.4-10.4); Monocytes # 0.6 10^3/uL (0.2-0.9); Neutrophils # 7.55 10^3/uL (1.8-7.7); Neutrophils % 67.8 %; Nucleated Red Blood Cells % 0 %; Platelet Count 251 10^3/cmm (130-400); Red Blood Count 2.89 10^6/uL (4.1-5.3); Red Cell Distribution Width 14.4 % (12.1-15.1); White Blood Count 11.1 10^3/uL (4.0-10.0)
[2021-01-24 17:50] LABS: ABG PCO2 39.2 mmHg (35-45); ABG PH Result 7.38 (7.35-7.45); Alveolar-Arterial Oxygen Gradi 5.2 mmHg (5-10); Arterial Blood Gas Hematocrit 27.6 % (42-52); Base Excess ABG -2.1 mmol/L (-2.0-2.0); Blood Gas Allen Test Pos; Blood Gas Sample Site Brachial, right; Blood Gas Sample Type Arterial; Carboxyhemoglobin 1.3 %THgb (0.4-20.1); HCO3 ABG 22.9 mmol/L (22-26); HGB O2 Sat 91.1 % (95-100); Ionized Calcium Level - ABG 1.3 mmol/L (1.1-1.4); Methemoglobin 0.8 % (0.4-1.5); Oxygen Device ROOM AIR; Oxygen Saturation ABG 93.1; PO2 ABG 62.5 mmHg (80.0-100.0); Potassium Level - ABG 5.2 mmol/L (3.5-5.0)
[2021-01-24 17:51] LABS: Add Urine Microscopic? YES; Bilirubin Urine 1+ (Negative); Blood Urine 2+ (Negative); Glucose Urine UA Norm (Normal); Ketones Urine 1+ (Negative); Leukocyte Esterase Urine 2+ (Negative); Nitrate Urine Negative (Negative); Protein Urine Trace (Negative); Specific Gravity, Urine 1.005 (1.005-1.030); Urine Appearance Cloudy (CLEAR); Urine Color Dark Yellow (Yellow); Urobilinogen Urine 1 mg/dL (Negative); pH Urine 6.5 (5-7)
[2021-01-24 17:52] LABS: Add Urine Culture? Yes; Bacteria Urine 4+ /hpf; WBC Urine TOO NUMEROUS TO CNT /hpf (0-5)
[2021-01-24 18:00] LABS: Ketone (Acetest) Serum Negative (Negative)
--- NOTE | 2021-01-24 18:04 | W.ED.AMS ---
Documented by User: Rohith Hernadez DO 01/28/21 16:38 HPI - Altered Mental Status General: Chief Complaint: Altered Mental Status Stated Complaint: AMS Time Seen by Provider: 01/24/21 17:12 History of Present Illness: HPI narrative: 85-year-old male lives at home with his . Comes in with acute delirium he has chronic underlying dementia beginning worse over the last 1 to 2 days. He is on Eliquis he had a fall earlier today. There is no loss of consciousness. No reported fever cough, however he has aubidly coarse breath sounds. He does have some decubitus ulcers 1 over the sacrum over the distal fifth metatarsal and at the right heel. No fever sweats or chills reported. Urine looked exceptionally infected grossly in the exam room. MD complaint: altered mental status, confusion and weakness Severity: moderate Consistency of symptoms: Getting Worse Associated symptoms: Deny auditory hallucinations, visual hallucinations, delusions, depression, homicidal ideation, racing thoughts or suicidal ideation Review of Systems Const: Denies: fever(s), chills, body aches, change in appetite, fatigue or malaise ENMT: Denies: throat pain, ear or mastoid pain, nasal discharge or nasal congestion Card: Denies: chest pain, edema, dyspnea on exertion or orthopnea Resp: Denies: dyspnea, productive cough or non-productive cough GI: Denies: abdominal pain, nausea, vomiting, hematemesis, coffee ground emesis, diarrhea, constipation, bloating, hematochezia or melena : Denies: flank pain, dysuria, urinary frequency or urinary urgency Skin/Breast: Denies: rash or pruritus Neuro: Reports: confusion and other (Dementia) Psych: Denies: depression, visual hallucinations, auditory hallucinations, suicidal ideation or homicidal ideation [facility] ED PFSH: Medical History (Updated 01/24/21 @ 20:53 by Leyda Lunsford MD) Chronic CHF (congestive heart failure) CKD (chronic kidney disease) Depression, major Hx of deep venous thrombosis Hypertension Neuropathy Recurrent UTI Restless leg syndrome Type 2 diabetes mellitus Urgency incontinence Urinary retention Surgical History H/O neck surgery H/O rotator cuff surgery Family History Mother Cancer Sister Cancer Diabetes Brother Diabetes Father Patient killed Social History Smoking and tobacco status: former smoker Alcohol intake: never Marital status: Current occupational status: retired History of recent travel: No Current gender identity: Male Physical Exam Const: COMMON NORMALS: no acute distress GENERAL APPEARANCE: cooperative and comfortable ORIENTATION/CONSCIOUSNESS: Yes awake, Yes oriented to person, Yes oriented to place and Yes oriented to time HENMT: COMMON NORMALS: normocephalic, atraumatic and hearing grossly normal bilaterally HEAD & SCALP: normocephalic and atraumatic Eye: COMMON NORMALS: Equal, round and reactive pupils present, EOMs intact bilaterally, conjunctivae normal and no scleral icterus CONJUNCTIVA: Yes conjunctivae normal PUPIL: Yes Equal, round and reactive pupils present Neck/C-Spine: COMMON NORMALS: full ROM, no lymphadenopathy, supple and no JVD Lymph: LYMPHATIC: no lymphadenopathy noted and no lymphedema noted Resp: COMMON NORMALS: normal respiratory effort, No retractions, No use of accessory muscles and clear to auscultation bilaterally AUSCULTATION: clear to auscultation bilaterally Cardio: COMMON NORMALS: no JVD, regular rate, regular rhythm and No murmurs present (Cardio) RATE: regular rate RHYTHM: regular rhythm GI: COMMON NORMALS: Soft to palpation and No hepatosplenomegaly present AUSCULTATION: Yes normoactive bowel sounds PALPATION: Yes Soft to palpation, No Tenderness to palpation present (GI), No Guarding due to palpation present (GI) and Yes No hepatosplenomegaly present Extremity: COMMON NORMALS: normal to inspection, capillary refill normal, no clubbing, cyanosis or edema, no calf tenderness and no pedal edema Neuro: SENSORIUM/ORIENTATION: Yes oriented to person, Yes oriented to place and Yes oriented to time Psych: THOUGHT CONTENT: No delusions Skin: COMMON NORMALS: no rashes or lesions noted GENERAL SKIN EXAM: no rashes or lesions noted Course Vital Signs: Vital signs: Vital Signs Temperature 99.3 F 01/28/21 12:00 Pulse Rate 101 H 01/28/21 12:00 Respiratory Rate 18 01/28/21 12:00 Blood Pressure 129/56 01/28/21 12:00 Pulse Oximetry 94 01/28/21 12:00 MDM - Altered Mental Status MDM Narrative: Medical decision making narrative: Initially seen patient did exam orders entered for work-up care turned over to Dr. Mendoza see his note for final diagnosis and disposition Lab Data: Labs: Lab Results 01/24/21 01/24/21 01/24/21 Range/Units 17:00 17:00 17:00 WBC 11.1 H (4.0-10.0) 10^3/ uL RBC 2.89 L (4.1-5.3) 10^6/u L Hgb 9.3 L (11.7-16.6) g/dL Hct 29.1 L (42.0-52.0) % MCV 100.7 H (80-94) fL MCH 32.2 (28.0-34.0) pg MCHC 32.0 (30.0-36.0) g/dL RDW 14.4 (12.1-15.1) % Plt Count 251 (130-400) 10^3/c mm MPV 10.5 H (7.4-10.4) fL Neut % (Auto) 67.8 % Lymph % (Auto) 25.8 % [place] % (Auto) 5.0 % Eos % (Auto) 0.4 % Baso % (Auto) 0.5 % Neut # (Auto) 7.55 (1.8-7.7) 10^3/u L Lymph # (Auto) 2.9 (0.8-4.8) 10^3/u L [place] # (Auto) 0.6 (0.2-0.9) 10^3/u L Eos # (Auto) 0.0 (0.0-0.8) 10^3/u L Baso # (Auto) 0.1 (0.0-0.1) 10^3/u L Nucleated RBC % (a uto) 0 % Nucleated RBCs # 0.0 /100WBC Specimen Type Sample Site ABG pH (7.35-7.45) ABG pCO2 (35-45) mmHg ABG pO2 (80.0-100.0) mmH g ABG HCO3 (22-26) mmol/L ABG O2 Saturation ABG Base Excess (-2.0-2.0) mmol/ L Lion Test A-a O2 Gradient (5-10) mmHg Hematocrit (42-52) % Hgb O2 Saturation (95-100) % Carboxyhemoglobin (0.4-20.1) %THgb Methemoglobin (0.4-1.5) % Total Hemoglobin (14-18) g/dL Ionized Calcium (1.1-1.4) mmol/L O2 Delivery Device Investment Banking Manager ID Sodium 141 (136-145) mmol/L Potassium 5.4 H (3.5-5.1) mmol/L Chloride 102 (98-107) mmol/L Carbon Dioxide 23 (22-29) mmol/L Anion Gap 21.4 H (5-19) BUN 146 H* D (8-23) mg/dL Creatinine 3.4 H (0.7-1.2) mg/dL GFR Calculation Not Reportable Glucose 149 H (65-115) mg/dL Calculated Osmolal ity 342 H (285-295) mOsm/k g Lactic Acid 4.5 H* (0.5-2.2) mmol/L Calcium 10.0 (8.5-10.5) mg/dL Magnesium 2.6 H (1.7-2.3) mg/dL Total Bilirubin 0.2 (0.15-1.2) mg/dL AST 12 (0-40) U/L ALT 8 (0-41) U/L Alkaline Phosphata se 45 (40-130) IU/L Creatine Kinase 187 (39-308) U/L Total Protein 6.6 (6.6-8.7) g/dL Albumin 3.5 (3.5-5.2) g/dL Globulin 3.1 (1.3-4.6) g/dL Lipase 11 L (13-60) U/L Vitamin B12 (232-1245) pg/mL Folate (4.5-32.2) ng/mL Procalcitonin (0-0.5) ng/mL Urine Color (Yellow) Urine Appearance (CLEAR) Urine pH (5-7) Ur Specific Gravit y (1.005-1.030) Urine Protein (Negative) Urine Glucose (UA) (Normal) Urine Ketones (Negative) Urine Blood (Negative) Urine Nitrate (Negative) Urine Bilirubin (Negative) Urine Urobilinogen (Negative) mg/dL Ur Leukocyte Mayra ase (Negative) Urine RBC (0-2) /hpf Urine WBC (0-5) /hpf Ur Squamous Epith Cells (0-5) /hpf Amorphous Sediment Urine Bacteria (NONE) /hpf Serum Ketones (Negative) 01/24/21 01/24/21 01/24/21 Range/Units 17:00 17:00 17:00 WBC (4.0-10.0) 10^3/ uL RBC (4.1-5.3) 10^6/u L Hgb (11.7-16.6) g/dL Hct (42.0-52.0) % MCV (80-94) fL MCH (28.0-34.0) pg MCHC (30.0-36.0) g/dL RDW (12.1-15.1) % Plt Count (130-400) 10^3/c mm MPV (7.4-10.4) fL Neut % (Auto) % Lymph % (Auto) % [place] % (Auto) % Eos % (Auto) % Baso % (Auto) % Neut # (Auto) (1.8-7.7) 10^3/u L Lymph # (Auto) (0.8-4.8) 10^3/u L [place] # (Auto) (0.2-0.9) 10^3/u L Eos # (Auto) (0.0-0.8) 10^3/u L Baso # (Auto) (0.0-0.1) 10^3/u L Nucleated RBC % (a uto) % Nucleated RBCs # /100WBC Specimen Type Sample Site ABG pH (7.35-7.45) ABG pCO2 (35-45) mmHg ABG pO2 (80.0-100.0) mmH g ABG HCO3 (22-26) mmol/L ABG O2 Saturation ABG Base Excess (-2.0-2.0) mmol/ L Lion Test A-a O2 Gradient (5-10) mmHg Hematocrit (42-52) % Hgb O2 Saturation (95-100) % Carboxyhemoglobin (0.4-20.1) %THgb Methemoglobin (0.4-1.5) % Total Hemoglobin (14-18) g/dL Ionized Calcium (1.1-1.4) mmol/L O2 Delivery Device Investment Banking Manager ID Sodium (136-145) mmol/L Potassium (3.5-5.1) mmol/L Chloride (98-107) mmol/L Carbon Dioxide (22-29) mmol/L Anion Gap (5-19) BUN (8-23) mg/dL Creatinine (0.7-1.2) mg/dL GFR Calculation Glucose (65-115) mg/dL Calculated Osmolal ity (285-295) mOsm/k g Lactic Acid (0.5-2.2) mmol/L Calcium (8.5-10.5) mg/dL Magnesium (1.7-2.3) mg/dL Total Bilirubin (0.15-1.2) mg/dL AST (0-40) U/L ALT (0-41) U/L Alkaline Phosphata se (40-130) IU/L Creatine Kinase (39-308) U/L Total Protein (6.6-8.7) g/dL Albumin (3.5-5.2) g/dL Globulin (1.3-4.6) g/dL Lipase (13-60) U/L Vitamin B12 387 (232-1245) pg/mL Folate (4.5-32.2) ng/mL Procalcitonin 0.31 (0-0.5) ng/mL Urine Color (Yellow) Urine Appearance (CLEAR) Urine pH (5-7) Ur Specific Gravit y (1.005-1.030) Urine Protein (Negative) Urine Glucose (UA) (Normal) Urine Ketones (Negative) Urine Blood (Negative) Urine Nitrate (Negative) Urine Bilirubin (Negative) Urine Urobilinogen (Negative) mg/dL Ur Leukocyte Mayra ase (Negative) Urine RBC (0-2) /hpf Urine WBC (0-5) /hpf Ur Squamous Epith Cells (0-5) /hpf Amorphous Sediment Urine Bacteria (NONE) /hpf Serum Ketones Negative (Negative) 01/24/21 01/24/21 01/24/21 Range/Units 17:00 17:04 17:39 WBC (4.0-10.0) 10^3/ uL RBC (4.1-5.3) 10^6/u L Hgb (11.7-16.6) g/dL Hct (42.0-52.0) % MCV (80-94) fL MCH (28.0-34.0) pg MCHC (30.0-36.0) g/dL RDW (12.1-15.1) % Plt Count (130-400) 10^3/c mm MPV (7.4-10.4) fL Neut % (Auto) % Lymph % (Auto) % [place] % (Auto) % Eos % (Auto) % Baso % (Auto) % Neut # (Auto) (1.8-7.7) 10^3/u L Lymph # (Auto) (0.8-4.8) 10^3/u L [place] # (Auto) (0.2-0.9) 10^3/u L Eos # (Auto) (0.0-0.8) 10^3/u L Baso # (Auto) (0.0-0.1) 10^3/u L Nucleated RBC % (a uto) % Nucleated RBCs # /100WBC Specimen Type Arterial Sample Site Brachial, right ABG pH 7.38 (7.35-7.45) ABG pCO2 39.2 (35-45) mmHg ABG pO2 62.5 L (80.0-100.0) mmH g ABG HCO3 22.9 (22-26) mmol/L ABG O2 Saturation 93.1 ABG Base Excess -2.1 L (-2.0-2.0) mmol/ L Lion Test Pos A-a O2 Gradient 5.2 (5-10) mmHg Hematocrit 27.6 L (42-52) % Hgb O2 Saturation 91.1 L (95-100) % Carboxyhemoglobin 1.3 (0.4-20.1) %THgb Methemoglobin 0.8 (0.4-1.5) % Total Hemoglobin 9.0 L (14-18) g/dL Ionized Calcium 1.3 (1.1-1.4) mmol/L O2 Delivery Device Room air Investment Banking Manager ID jmn Sodium 143.0 (136-145) mmol/L Potassium 5.2 H (3.5-5.1) mmol/L Chloride (98-107) mmol/L Carbon Dioxide (22-29) mmol/L Anion Gap (5-19) BUN (8-23) mg/dL Creatinine (0.7-1.2) mg/dL GFR Calculation Glucose 152.0 H (65-115) mg/dL Calculated Osmolal ity (285-295) mOsm/k g Lactic Acid (0.5-2.2) mmol/L Calcium (8.5-10.5) mg/dL Magnesium (1.7-2.3) mg/dL Total Bilirubin (0.15-1.2) mg/dL AST (0-40) U/L ALT (0-41) U/L Alkaline Phosphata se (40-130) IU/L Creatine Kinase (39-308) U/L Total Protein (6.6-8.7) g/dL Albumin (3.5-5.2) g/dL Globulin (1.3-4.6) g/dL Lipase (13-60) U/L Vitamin B12 (232-1245) pg/mL Folate 19.6 (4.5-32.2) ng/mL Procalcitonin (0-0.5) ng/mL Urine Color Dark yellow (Yellow) Urine Appearance Cloudy (CLEAR) Urine pH 6.5 (5-7) Ur Specific Gravit y 1.005 (1.005-1.030) Urine Protein Trace (Negative) Urine Glucose (UA) Norm (Normal) Urine Ketones 1+ H (Negative) Urine Blood 2+ H (Negative) Urine Nitrate Negative (Negative) Urine Bilirubin 1+ H (Negative) Urine Urobilinogen 1 H (Negative) mg/dL Ur Leukocyte Mayra ase 2+ H (Negative) Urine RBC 5-10 H (0-2) /hpf Urine WBC Too numerous to c nt H (0-5) /hpf Ur Squamous Epith Cells 5-10 H (0-5) /hpf Amorphous Sediment Not Reportable Urine Bacteria 4+ H (NONE) /hpf Serum Ketones (Negative) Discharge Plan Discharge Patient Disposition: Admitted As Inpatient Admit Provider: Leyda Lunsford Clinical Impression: Acute cystitis Qualifiers: Hematuria presence: without hematuria Qualified Code(s): N30.00 - Acute cystitis without hematuria Sepsis Qualifiers: Sepsis type: sepsis due to unspecified organism Sepsis acute organ dysfunction status: without acute organ dysfunction Qualified Code(s): A41.9 - Sepsis, unspecified organism Pneumonia Qualifiers: Pneumonia type: due to unspecified organism Laterality: right Lung location: lower lobe of lung Qualified Code(s): J18.9 - Pneumonia, unspecified organism Condition: Stable Discharge Diet: Diabetic Discharge Activity: Increase activity as tolerated Coding Level of Care Code ED Prize Jacker for Chg Fwd Exam Problem Focused Documented by User: Magalys Mendoza MD 01/24/21 19:26 HPI - Altered Mental Status General: Chief Complaint: Altered Mental Status Stated Complaint: AMS Time Seen by Provider: 01/24/21 17:12 PFSH ED PFSH: Medical History (Updated 01/24/21 @ 20:53 by Leyda Lunsford MD) Chronic CHF (congestive heart failure) CKD (chronic kidney disease) Depression, major Hx of deep venous thrombosis Hypertension Neuropathy Recurrent UTI Restless leg syndrome Type 2 diabetes mellitus Urgency incontinence Urinary retention Surgical History H/O neck surgery H/O rotator cuff surgery Family History Mother Cancer Sister Cancer Diabetes Brother Diabetes Father Patient killed Social History Smoking and tobacco status: former smoker Alcohol intake: never Marital status: Current occupational status: retired History of recent travel: No Current gender identity: Male Course Vital Signs: Vital signs: Vital Signs Temperature 99.3 F 01/28/21 12:00 Pulse Rate 101 H 01/28/21 12:00 Respiratory Rate 18 01/28/21 12:00 Blood Pressure 129/56 01/28/21 12:00 Pulse Oximetry 94 01/28/21 12:00 MDM - Altered Mental Status MDM Narrative: Medical decision making narrative: Martin presents here with altered mental status likely from an acute cystitis. Patient also has acute kidney injury from dehydration along with sepsis. Patient's blood pressures here have been stable. Patient also has pneumonia and will start him on antibiotic vancomycin and Zosyn. He is stable for admission to the ICU at this time. Lab Data: Labs: Lab Results 01/24/21 01/24/21 01/24/21 Range/Units 17:00 17:00 17:00 WBC 11.1 H (4.0-10.0) 10^3/ uL RBC 2.89 L (4.1-5.3) 10^6/u L Hgb 9.3 L (11.7-16.6) g/dL Hct 29.1 L (42.0-52.0) % MCV 100.7 H (80-94) fL MCH 32.2 (28.0-34.0) pg MCHC 32.0 (30.0-36.0) g/dL RDW 14.4 (12.1-15.1) % Plt Count 251 (130-400) 10^3/c mm MPV 10.5 H (7.4-10.4) fL Neut % (Auto) 67.8 % Lymph % (Auto) 25.8 % [place] % (Auto) 5.0 % Eos % (Auto) 0.4 % Baso % (Auto) 0.5 % Neut # (Auto) 7.55 (1.8-7.7) 10^3/u L Lymph # (Auto) 2.9 (0.8-4.8) 10^3/u L [place] # (Auto) 0.6 (0.2-0.9) 10^3/u L Eos # (Auto) 0.0 (0.0-0.8) 10^3/u L Baso # (Auto) 0.1 (0.0-0.1) 10^3/u L Nucleated RBC % (a uto) 0 % Nucleated RBCs # 0.0 /100WBC Specimen Type Sample Site ABG pH (7.35-7.45) ABG pCO2 (35-45) mmHg ABG pO2 (80.0-100.0) mmH g ABG HCO3 (22-26) mmol/L ABG O2 Saturation ABG Base Excess (-2.0-2.0) mmol/ L Lion Test A-a O2 Gradient (5-10) mmHg Hematocrit (42-52) % Hgb O2 Saturation (95-100) % Carboxyhemoglobin (0.4-20.1) %THgb Methemoglobin (0.4-1.5) % Total Hemoglobin (14-18) g/dL Ionized Calcium (1.1-1.4) mmol/L O2 Delivery Device Investment Banking Manager ID Sodium 141 (136-145) mmol/L Potassium 5.4 H (3.5-5.1) mmol/L Chloride 102 (98-107) mmol/L Carbon Dioxide 23 (22-29) mmol/L Anion Gap 21.4 H (5-19) BUN 146 H* D (8-23) mg/dL Creatinine 3.4 H (0.7-1.2) mg/dL GFR Calculation Not Reportable Glucose 149 H (65-115) mg/dL Calculated Osmolal ity 342 H (285-295) mOsm/k g Lactic Acid 4.5 H* (0.5-2.2) mmol/L Calcium 10.0 (8.5-10.5) mg/dL Magnesium 2.6 H (1.7-2.3) mg/dL Total Bilirubin 0.2 (0.15-1.2) mg/dL AST 12 (0-40) U/L ALT 8 (0-41) U/L Alkaline Phosphata se 45 (40-130) IU/L Creatine Kinase 187 (39-308) U/L Total Protein 6.6 (6.6-8.7) g/dL Albumin 3.5 (3.5-5.2) g/dL Globulin 3.1 (1.3-4.6) g/dL Lipase 11 L (13-60) U/L Vitamin B12 (232-1245) pg/mL Folate (4.5-32.2) ng/mL Procalcitonin (0-0.5) ng/mL Urine Color (Yellow) Urine Appearance (CLEAR) Urine pH (5-7) Ur Specific Gravit y (1.005-1.030) Urine Protein (Negative) Urine Glucose (UA) (Normal) Urine Ketones (Negative) Urine Blood (Negative) Urine Nitrate (Negative) Urine Bilirubin (Negative) Urine Urobilinogen (Negative) mg/dL Ur Leukocyte Mayra ase (Negative) Urine RBC (0-2) /hpf Urine WBC (0-5) /hpf Ur Squamous Epith Cells (0-5) /hpf Amorphous Sediment Urine Bacteria (NONE) /hpf Serum Ketones (Negative) 01/24/21 01/24/21 01/24/21 Range/Units 17:00 17:00 17:00 WBC (4.0-10.0) 10^3/ uL RBC (4.1-5.3) 10^6/u L Hgb (11.7-16.6) g/dL Hct (42.0-52.0) % MCV (80-94) fL MCH (28.0-34.0) pg MCHC (30.0-36.0) g/dL RDW (12.1-15.1) % Plt Count (130-400) 10^3/c mm MPV (7.4-10.4) fL Neut % (Auto) % Lymph % (Auto) % [place] % (Auto) % Eos % (Auto) % Baso % (Auto) % Neut # (Auto) (1.8-7.7) 10^3/u L Lymph # (Auto) (0.8-4.8) 10^3/u L [place] # (Auto) (0.2-0.9) 10^3/u L Eos # (Auto) (0.0-0.8) 10^3/u L Baso # (Auto) (0.0-0.1) 10^3/u L Nucleated RBC % (a uto) % Nucleated RBCs # /100WBC Specimen Type Sample Site ABG pH (7.35-7.45) ABG pCO2 (35-45) mmHg ABG pO2 (80.0-100.0) mmH g ABG HCO3 (22-26) mmol/L ABG O2 Saturation ABG Base Excess (-2.0-2.0) mmol/ L Lion Test A-a O2 Gradient (5-10) mmHg Hematocrit (42-52) % Hgb O2 Saturation (95-100) % Carboxyhemoglobin (0.4-20.1) %THgb Methemoglobin (0.4-1.5) % Total Hemoglobin (14-18) g/dL Ionized Calcium (1.1-1.4) mmol/L O2 Delivery Device Investment Banking Manager ID Sodium (136-145) mmol/L Potassium (3.5-5.1) mmol/L Chloride (98-107) mmol/L Carbon Dioxide (22-29) mmol/L Anion Gap (5-19) BUN (8-23) mg/dL Creatinine (0.7-1.2) mg/dL GFR Calculation Glucose (65-115) mg/dL Calculated Osmolal ity (285-295) mOsm/k g Lactic Acid (0.5-2.2) mmol/L Calcium (8.5-10.5) mg/dL Magnesium (1.7-2.3) mg/dL Total Bilirubin (0.15-1.2) mg/dL AST (0-40) U/L ALT (0-41) U/L Alkaline Phosphata se (40-130) IU/L Creatine Kinase (39-308) U/L Total Protein (6.6-8.7) g/dL Albumin (3.5-5.2) g/dL Globulin (1.3-4.6) g/dL Lipase (13-60) U/L Vitamin B12 387 (232-1245) pg/mL Folate (4.5-32.2) ng/mL Procalcitonin 0.31 (0-0.5) ng/mL Urine Color (Yellow) Urine Appearance (CLEAR) Urine pH (5-7) Ur Specific Gravit y (1.005-1.030) Urine Protein (Negative) Urine Glucose (UA) (Normal) Urine Ketones (Negative) Urine Blood (Negative) Urine Nitrate (Negative) Urine Bilirubin (Negative) Urine Urobilinogen (Negative) mg/dL Ur Leukocyte Mayra ase (Negative) Urine RBC (0-2) /hpf Urine WBC (0-5) /hpf Ur Squamous Epith Cells (0-5) /hpf Amorphous Sediment Urine Bacteria (NONE) /hpf Serum Ketones Negative (Negative) 01/24/21 01/24/21 01/24/21 Range/Units 17:00 17:04 17:39 WBC (4.0-10.0) 10^3/ uL RBC (4.1-5.3) 10^6/u L Hgb (11.7-16.6) g/dL Hct (42.0-52.0) % MCV (80-94) fL MCH (28.0-34.0) pg MCHC (30.0-36.0) g/dL RDW (12.1-15.1) % Plt Count (130-400) 10^3/c mm MPV (7.4-10.4) fL Neut % (Auto) % Lymph % (Auto) % [place] % (Auto) % Eos % (Auto) % Baso % (Auto) % Neut # (Auto) (1.8-7.7) 10^3/u L Lymph # (Auto) (0.8-4.8) 10^3/u L [place] # (Auto) (0.2-0.9) 10^3/u L Eos # (Auto) (0.0-0.8) 10^3/u L Baso # (Auto) (0.0-0.1) 10^3/u L Nucleated RBC % (a uto) % Nucleated RBCs # /100WBC Specimen Type Arterial Sample Site Brachial, right ABG pH 7.38 (7.35-7.45) ABG pCO2 39.2 (35-45) mmHg ABG pO2 62.5 L (80.0-100.0) mmH g ABG HCO3 22.9 (22-26) mmol/L ABG O2 Saturation 93.1 ABG Base Excess -2.1 L (-2.0-2.0) mmol/ L Lion Test Pos A-a O2 Gradient 5.2 (5-10) mmHg Hematocrit 27.6 L (42-52) % Hgb O2 Saturation 91.1 L (95-100) % Carboxyhemoglobin 1.3 (0.4-20.1) %THgb Methemoglobin 0.8 (0.4-1.5) % Total Hemoglobin 9.0 L (14-18) g/dL Ionized Calcium 1.3 (1.1-1.4) mmol/L O2 Delivery Device Room air Investment [employer]ing Manager ID jmn Sodium 143.0 (136-145) mmol/L Potassium 5.2 H (3.5-5.1) mmol/L Chloride (98-107) mmol/L Carbon Dioxide (22-29) mmol/L Anion Gap (5-19) BUN (8-23) mg/dL Creatinine (0.7-1.2) mg/dL GFR Calculation Glucose 152.0 H (65-115) mg/dL Calculated Osmolal ity (285-295) mOsm/k g Lactic Acid (0.5-2.2) mmol/L Calcium (8.5-10.5) mg/dL Magnesium (1.7-2.3) mg/dL Total Bilirubin (0.15-1.2) mg/dL AST (0-40) U/L ALT (0-41) U/L Alkaline Phosphata se (40-130) IU/L Creatine Kinase (39-308) U/L Total Protein (6.6-8.7) g/dL Albumin (3.5-5.2) g/dL Globulin (1.3-4.6) g/dL Lipase (13-60) U/L Vitamin B12 (232-1245) pg/mL Folate 19.6 (4.5-32.2) ng/mL Procalcitonin (0-0.5) ng/mL Urine Color Dark yellow (Yellow) Urine Appearance Cloudy (CLEAR) Urine pH 6.5 (5-7) Ur Specific Gravit y 1.005 (1.005-1.030) Urine Protein Trace (Negative) Urine Glucose (UA) Norm (Normal) Urine Ketones 1+ H (Negative) Urine Blood 2+ H (Negative) Urine Nitrate Negative (Negative) Urine Bilirubin 1+ H (Negative) Urine Urobilinogen 1 H (Negative) mg/dL Ur Leukocyte Mayra ase 2+ H (Negative) Urine RBC 5-10 H (0-2) /hpf Urine WBC Too numerous to c nt H (0-5) /hpf Ur Squamous Epith Cells 5-10 H (0-5) /hpf Amorphous Sediment Not Reportable Urine Bacteria 4+ H (NONE) /hpf Serum Ketones (Negative) Critical Care Time Critical Care Time: Critical Care Time: Yes Total Critical Care Time: 35 Attestation: This case had a high probability of a clinically significant, sudden, or life threatening deterioration of this patient's condition which required my full and direct attention, intervention and personal management. Discharge Plan Discharge Patient Disposition: Admitted As Inpatient Admit Provider: Leyda Lunsford Clinical Impression: Acute cystitis Qualifiers: Hematuria presence: without hematuria Qualified Code(s): N30.00 - Acute cystitis without hematuria Sepsis Qualifiers: Sepsis type: sepsis due to unspecified organism Sepsis acute organ dysfunction status: without acute organ dysfunction Qualified Code(s): A41.9 - Sepsis, unspecified organism Pneumonia Qualifiers: Pneumonia type: due to unspecified organism Laterality: right Lung location: lower lobe of lung Qualified Code(s): J18.9 - Pneumonia, unspecified organism Condition: Stable Discharge Diet: Diabetic Discharge Activity: Increase activity as tolerated Coding Level of Care Code ED Prize Jacker for [place] Fwd Exam Problem Focused
[2021-01-24 18:12] LABS: Lactic Sepsis W/Reflex 4.5 mmol/L (0.5-2.2)
[2021-01-24 18:16] LABS: Alanine Aminotransferase 8 U/L (0-41); Albumin Level 3.5 g/dL (3.5-5.2); Alkaline Phosphatase 45 IU/L (40-130); Anion Gap 21.4 (5-19); Aspartate Amino Transferase 12 U/L (0-40); Carbon Dioxide 23 mmol/L (22-29); Chloride 102 mmol/L (98-107); Creatine Phosphokinase 187 U/L (39-308); Globulin 3.1 g/dL (1.3-4.6); Glucose 149 mg/dL (65-115); Lipase 11 U/L (13-60); Magnesium 2.6 mg/dL (1.7-2.3); Potassium 5.4 mmol/L (3.5-5.1); Sodium 141 mmol/L (136-145); Total Bilirubin 0.2 mg/dL (0.15-1.2); Total Protein 6.6 g/dL (6.6-8.7)
[2021-01-24] MEDS: sodium chloride 0.9% 1,000 ML 999 ML IV (18:34)
[2021-01-24] MEDS: piperacillin-tazobactam 3.375 GM in sodium chloride 0.9% (plus) 50 ML IV (18:34)
[2021-01-24 18:43] LABS: Blood Urea Nitrogen 146 mg/dL (8-23); Osmolality Calculated 342 mOsm/kg (285-295)
[2021-01-24 19:10] LABS: Reflex Lactate Order REFLEX LACTIC ORDERD
--- NOTE | 2021-01-24 19:19 | P.HP_ITS ---
Providers/Chief Complaint Primary Care Provider: Nneka Lawrence MD Chief Complaint: AMS History of Present Illness Martin Schultz is a 85 year old male Who has history of recurrent UTI, BPH, 12/08/2019 urine culture grew Morganella, ousmane, has been following up with Dr. Paul for urge incontinence, presented today with chief complaint of altered mental status. He was sent by his today for confusion which was noticed at home. Patient has not been able to void for quite some time apparently. He was complaining of mild hypogastric pain denied nausea, vomiting, fever, cough, chest pain or change in bowel movements. He was very dry and dehydrated I gave him 2 grape juice containers which made him feel better. During my evaluation noticed hypogastric distention of bladder and asked ER nurse to place Lockett catheter on stat basis, requested CT abdomen pelvis because of LESLIE, he has received vancomycin and Zosyn in the ER for concern of sepsis, blood cultures has been taken. I called his to get the report, is reporting that today he was very lethargic, he did not eat or drink much today he just kept laying in bed and was sleeping all day, when nurse checked on him around evening decision was made to send him to the hospital. Diagnostics in the ER revealed leukocytosis, high lactic acid, LESLIE, hyperk alemia, hypermagnesemia, normal pH, head CT unremarkable abdomen pelvis CT scan showed urinary bladder distention, chest x-ray showing fibrotic changes He was hypotensive blood pressure 99/63 he was given septic bolus along antibiotics, urine culture, blood culture obtained Review of Systems Const: Reports: chills, body aches and fatigue; Denies: fever(s) Eyes: Denies: change in vision ENMT: Denies: throat pain Card: Denies: chest pain Resp: Denies: dyspnea GI: Reports: abdominal pain; Denies: diarrhea or constipation : Reports: difficulty starting urination; Denies: flank pain Musc: Denies: neck pain Skin/Breast: Denies: rash Neuro: Denies: headache(s) Psych: Reports: memory loss Endo: Denies: polyuria Magdi/Lymph: Denies: easy bruising All/Imm: Denies: urticaria Medications/Allergies Home Medications Medication Instructions Recorded Confirmed Last Taken Type magnesium 250 mg tablet 250 mg PO DAILY 01/04/20 01/20/21 Unknown History blood sugar diagnostic #100 each 02/19/20 01/20/21 Unknown Rx blood sugar diagnostic #100 each 02/24/20 01/20/21 Unknown Rx methenamine hippurate 1 gram tablet See Rx Instructions .ROUTE 10/25/20 01/20/21 Unknown Rx .COMPLEX #180 tab insulin detemir U-100 100 unit/mL 35 unit SUBCUT DAILY #15 ml 12/06/20 01/20/21 Unknown Rx (3 mL) subcutaneous pen Eliquis 5 mg tablet 5 mg PO BID 30 Days #60 tab NS 01/20/21 01/20/21 Unknown Rx finasteride 5 mg tablet See Rx Instructions .ROUTE 01/20/21 01/20/21 Unknown Rx .COMPLEX #90 tab furosemide 40 mg tablet 40 mg PO QAM 30 Days #30 tab 01/20/21 01/20/21 Unknown Rx gabapentin 600 mg tablet 600 mg PO BID 30 Days #60 tab 01/20/21 01/20/21 Unknown Rx lisinopril 5 mg tablet 5 mg PO DAILY 30 Days #30 tab 01/20/21 01/20/21 Unknown Rx metformin 1,000 mg tablet 1,000 mg PO BID 30 Days #60 tab 01/20/21 01/20/21 Unknown Rx mirtazapine 15 mg tablet See Rx Instructions .ROUTE 01/20/21 01/20/21 Unknown Rx .COMPLEX #90 tab potassium chloride 10 mEq See Rx Instructions .ROUTE 01/20/21 01/20/21 Unknown R x tablet,extended release .COMPLEX #90 tab ropinirole 1 mg tablet See Rx Instructions .ROUTE 01/20/21 01/20/21 Unknown Rx .COMPLEX #270 tab tamsulosin 0.4 mg capsule See Rx Instructions .ROUTE 01/20/21 01/20/21 Unknown Rx .COMPLEX #90 cap Allergies Allergy/AdvReac Type Severity Reaction Status Date / Time No Known Allergies Allergy Verified 01/20/21 11:03 PFSH Acute PFSH: Medical History (Updated 01/24/21 @ 20:53 by Leyda Lunsford MD) Chronic CHF (congestive heart failure) CKD (chronic kidney disease) Depression, major Hx of deep venous thrombosis Hypertension Neuropathy Recurrent UTI Restless leg syndrome Type 2 diabetes mellitus Urgency incontinence Urinary retention Surgical History H/O neck surgery H/O rotator cuff surgery Family History Mother Cancer Sister Cancer Diabetes Brother Diabetes Father Patient killed Social History Smoking and tobacco status: former smoker Alcohol intake: never Marital status: Current occupational status: retired History of recent travel: No Current gender identity: Male Vitals/I&O/Wt Last Vital Signs Temp 97.9 F 01/24/21 16:44 Pulse 88 01/24/21 18:38 Resp 14 01/24/21 18:38 BP 99/63 01/24/21 18:38 Pulse Ox 97 01/24/21 18:38 Weight last 48 hrs Weight 88.451 kg Physical Exam Narrative: EXAM NARRATIVE: Very pleasant elderly male Currently saturating well on room air No active chest pain S1, S2 no murmur appreciated no signs of heart failure Abdomen soft, distended, hypogastric tenderness, dull to percussion No neurological deficit EOMI, PERRLA Awake alert oriented x3 GCS 15 He does take time to answer my question but his answers were appropriate No lower extremity edema gangrene or ulcer Toe amputation No active gangrene or ulcer No signs of meningitis Data : 01/24/21 17:00 01/24/21 17:00 A&P Assessment and plan (1) Acute cystitis: Acute UTI with sepsis Has history of recurrent UTI, previous urine culture reviewed, I will start him on ceftriaxone, reviewed previous culture and sensitivity results Keep him on normal saline, he received vancomycin and Zosyn along septic bolus in the ER Abdomen did not reveal hydronephrosis however showed urinary bladder distention, asked ER nurse to provide Lockett catheter on stat basis Blood culture, urine culture obtained, no signs of pneumonia or meningitis, he is afebrile, most likely source is UTI Status: Acute Qualifiers: Hematuria presence: without hematuria Qualified Code(s): N30.00 - Acute cystitis without hematuria (2) Sepsis: Criteria met with lactic acidemia, leukocytosis, hypotension Currently on ceftriaxone with normal saline receiving Zosyn in the ER Cultures obtained I do believe patient has underlying dementia with no acute decompensation, he is awake alert oriented x3 does take time to answer my questions but his answers are appropriate no active encephalopathy noted Status: Acute Qualifiers: Sepsis acute organ dysfunction status: without acute organ dysfunction Sepsis type: sepsis due to unspecified organism Qualified Code(s): A41.9 - Sepsis, unspecified organism (3) LESLIE (acute kidney injury): Status: Acute (4) Hyperkalemia: Secondary to LESLIE and use of potassium supplementation Hold potassium, drainage of urine would definitely improve his hyperkalemia and LESLIE Monitor urine output, stop nephrotoxic agent Status: Acute (5) Metabolic acidosis: Secondary to lactic acidemia due to sepsis due to UTI management as mentioned above Status: Acute (6) Macrocytic anemia: Hematuria I would request B12 and folic acid level Acute macrocytic anemia previous hemoglobin seems to around 11 would use SCDs for now instead of DVT anticoagulating agent Status: Acute Additional A&P Information Consistent carb diet with moderate sliding scale for type 2 diabetes Goals of care: Full code discussed with the patient DVT prophylaxis: SCDs Attestations Medical Necessity Statement*: Anticipating stay in the hospital cross more than 2 midnights for sepsis, UTI Time Spent in Patient Care: (>than 50% of time spent in counselling and/or direct pt care on unit) . 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
--- NOTE | 2021-01-24 19:22 | CTR_ITS ---
PROCEDURE INFORMATION: Exam: CT Abdomen And Pelvis Without Contrast Exam date and time: 01/24/2021 7:30 PM Age: 85 years old Clinical indication: Abdominal pain; Additional info: UTI TECHNIQUE: Imaging protocol: Computed tomography of the abdomen and pelvis without contrast. Radiation optimization: All CT scans at this facility use at least one of these dose optimization techniques: automated exposure control; mA and/or kV adjustment per patient size (includes targeted exams where dose is matched to clinical indication); or iterative reconstruction. COMPARISON: CR Hip 2-3v RIGHT wwo Pelv* [id number] 02/12/2018 12:25 PM RADIATION DOSE METRICS: Total DLP (mGy-cm): 917.34 FINDINGS: Lungs: Bilateral discoid atelectasis and/or scarring. Heart: Moderate calcification in the mitral valve and/or mitral valve annulus. Liver: Normal. No mass. Gallbladder and bile ducts: Normal. No calcified stones. No ductal dilation. Pancreas: Normal. No ductal dilation. Spleen: Normal. No splenomegaly. Adrenal glands: Normal. No mass. Kidneys and ureters: Normal. No hydronephrosis. Stomach and bowel: Unremarkable. No obstruction. No mucosal thickening. Appendix: No evidence of appendicitis. Intraperitoneal space: Unremarkable. No free air. No significant fluid collection. Vasculature: Severe calcified coronary artery disease. Lymph nodes: Unremarkable. No enlarged lymph nodes. Urinary bladder: Enlarged 19 cm urinary bladder with trabeculation and cellule formation suggesting possible chronic outlet obstruction versus neurogenic bladder. 4.5 cm right urinary bladder diverticulum. 3.8 cm left posterolateral urinary bladder diverticulum. Bilateral urinary bladder diverticula measuring up to 4.5 cm in diameter. Reproductive: Somewhat small partially calcified prostate with possible previous TURP procedure. Bones/joints: Severe multilevel spine degenerative changes including degenerative disc disease, spondylosis and facet degenerative changes. Mild dextroscoliosis. Soft tissues: Unremarkable. CT/CT abdomen pelvis wo con [id number] IMPRESSION: 1. Enlarged 19 cm urinary bladder with trabeculation and cellule formation suggesting possible chronic outlet obstruction versus neurogenic bladder. 2. Bilateral urinary bladder diverticula measuring up to 4.5 cm in diameter. 3. Somewhat small partially calcified prostate with possible previous TURP procedure. Radiation Dose CTDIVOL = (mGy): DLP = 917.34 (mGy-cm)
[2021-01-24 20:20] LABS: Lactic Acid level (Lactate) 4.4 mmol/L (0.5-2.2)
[2021-01-24 20:27] LABS: Procalcitonin 0.31 ng/mL (0-0.5)
[2021-01-24] MEDS: sodium chloride 0.9% 1,000 ML 75 ML IV (21:35)
[2021-01-24] MEDS: cefTRIAXone 1,000 MG in sodium chloride 0.9% (plus) 50 ML 100 MG IV (21:35)
--- NOTE | 2021-01-24 21:45 | PC.NURSE ---
Patient arrived from ED to ICU at 2108. Lungs clear in all lobes, diminished in bases, active BS in all quadrants, left great toe amputation, left 5th toe skin ulcer, diabetic patient.
[2021-01-24 21:47] LABS: Glucose Point of Care 135 mg/dL (70-110)
[2021-01-24 23:20] LABS: Vitamin B12 387 pg/mL (232-1245)
[2021-01-25] VITALS (223 sets, daily range): BP systolic 73–189; BP diastolic 45–148; PULSE 72–105; RESP 9–32; TEMP 36.3–37.2; O2SAT 67–100
[2021-01-25 00:07] LABS: Folate Level 19.6 ng/mL (4.5-32.2)
[2021-01-25 05:44] LABS: Lactate (Lactic Acid level) 2.1 mmol/L (0.5-2.2)
[2021-01-25 05:45] LABS: Anion Gap 16.7 (5-19); Basophils % 0.4 %; Calcium 9.3 mg/dL (8.5-10.5); Carbon Dioxide 25 mmol/L (22-29); Chloride 106 mmol/L (98-107); Eosinophils # 0.2 10^3/uL (0.0-0.8); Eosinophils % 1.5 %; Glucose 72 mg/dL (65-115); Hematocrit 25.6 % (42.0-52.0); Hemoglobin 7.9 g/dL (11.7-16.6); Lymphocytes # 3.2 10^3/uL (0.8-4.8); Lymphocytes % 29.1 %; Mean Corpuscular HGB Conc 30.9 g/dL (30.0-36.0); Mean Corpuscular Hemoglobin 30.9 pg (28.0-34.0); Monocytes # 0.8 10^3/uL (0.2-0.9); Monocytes % 7.1 %; Neutrophils # 6.66 10^3/uL (1.8-7.7); Neutrophils % 61.6 %; Nucleated Red Blood Cells % 0 %; Platelet Count 242 10^3/cmm (130-400); Potassium 4.7 mmol/L (3.5-5.1); Red Blood Count 2.56 10^6/uL (4.1-5.3); Red Cell Distribution Width 14.2 % (12.1-15.1); Sodium 143 mmol/L (136-145); White Blood Count 10.8 10^3/uL (4.0-10.0)
[2021-01-25 06:23] LABS: Blood Urea Nitrogen 138 mg/dL (8-23); Osmolality Calculated 339 mOsm/kg (285-295)
[2021-01-25 07:15] LABS: Glucose Point of Care 78 mg/dL (70-110)
[2021-01-25] MEDS: pantoprazole DR 40 mg Tablet PO ×2 (08:30→18:13)
[2021-01-25] MEDS: finasteride 5 mg Tablet PO (08:30)
[2021-01-25] MEDS: sodium chloride 0.9% 1,000 ML 75 ML IV (08:30)
[2021-01-25] MEDS: sodium chloride 0.9% 1,000 ML 999 ML IV (08:31)
[2021-01-25] MEDS: sodium chloride 0.9% 500 ML 999 ML IV (08:31)
[2021-01-25 08:44] LABS: Ferritin 45 ng/mL (30-400); Iron 38 ug/dL (59-158); Percent Saturation 17.7 % (20-50); Total Iron Binding Capacity 214 mcg/dl; Unsaturated Iron Binding 176 ug/dL (112-347)
--- NOTE | 2021-01-25 09:38 | PC.CHAP ---
Pastoral Care Encounter/Spiritual Assessment Type of Contact [] Declined ground host/hostess visit [] Patient/Family/Request visit [] Outpatient visit [] Follow-up visit [] Physician referral [] Code/Alert [x] Routine visit [] Staff referral [] Actively dying [] Patient sleeping [] Family support [] [] Out of room [] Palliative care [] [] Receiving care in room [] Pre-surgical visit [] Trauma [] Long length of stay [x] ICU visit [x] Other: patient needed help eating.. in and out of sleep Relational/Emotional Strength [] Patient feels connected with others/family/visitors/staff [] Distress [] Loneliness/isolation [] Abandonment Spirituality of Patient [] Person of Mandi [] Attends Sabianism of their Mandi [] Believes in Prayer [] Reads Bible or Cheondoism materials [] There are Spiritual issues to be addressed Conversion Man Interventions [x] Prayer [] Active listening [] Non-anxious presence [] Spiritual/emotional support [] Crisis/trauma care [] Spiritual counseling [] Bereavement support [] Provided bereavement packet [] Provided Bible/devotional materials [] Provided toy/stuffed animal, coloring book to patient or family member [] Provided Communion [] Anointing/Reader [] Salvation [x] Completed spiritual assessment [] Other: Impact on Illness or Injury [] Angry [] Fearful [] Anxious [] Often cries [] Exhaustion [] Unable to work [] Unable to attend advent [] Unable to walk/stand [] Unable to read [] Unable to drive [] Unable to eat/drink [] Unable to sleep [] Unable to be with family [] Patient intubated [] Other: Summary Time spent with patient
--- NOTE | 2021-01-25 10:09 | P.PN_ITS ---
Subjective Subjective: Interval history: Martin awakens easily. He seems somewhat confused. No specific complaints. Medications: Reviewed: Yes Vitals/I&O/Wt Last Vital Signs Temp 97.0 F L 01/24/21 21:26 Pulse 87 01/25/21 08:50 Resp 20 H 01/25/21 08:50 BP 103/52 01/25/21 08:00 Pulse Ox 79 L 01/25/21 08:50 01/24/21 01/25/21 01/25/21 22:59 06:59 14:59 Intake Total 1100 / 1100 100 / 1200 1138.75 / 1138.75 Output Total 2400 / 2400 Balance 1100 / 1100 -2300 / -1200 1138.75 / 1138.75 Weight last 48 hrs Weight 88.451 kg Physical Exam Narrative: EXAM NARRATIVE: General exam no apparent distress Cardiovascular regular rate and rhythm without murmur Lungs clear Abdomen is soft, positive bowel sounds Extremities no cyanosis clubbing or edema Urinary Catheter Management^: Lockett: Cath Placed During This Visit: yes Reason for Continuing Indwelling Catheter: Accurate Measurement of Urinary Output in Critically Ill Patients Urinary Catheter Date of Insertion: 01/24/21 Urinary Catheter Time of Insertion: 20:30 Data : 01/25/21 04:58 01/25/21 04:58 Micro: Microbiology 01/24/21 20:20 Blood Culture - Preliminary Blood SPECIMEN COLLECTED 01/24/21 19:37 Blood Culture - Preliminary Blood SPECIMEN COLLECTED A&P Assessment and plan (1) Acute cystitis: Associated with sepsis Received vancomycin and Zosyn in the emergency department but after review of previous urine culture results Rocephin was initiated. Change dose of Rocephin to 1 g IV every 12 hours Await urine culture Had significant urinary retention and evidence of chronic retention on CT. Lockett was placed. This will need to be continued on discharge. Status: Acute Qualifiers: Hematuria presence: without hematuria Qualified Code(s): N30.00 - Acute cystitis without hematuria (2) Sepsis: Criteria met with lactic acidemia, leukocytosis, hypotension Blood cultures obtained Await blood and urine cultures It does not appear that he is requiring any norepinephrine currently. Will discontinue. Status: Acute Qualifiers: Sepsis acute organ dysfunction status: without acute organ dysfunction Sepsis type: sepsis due to unspecified organism Qualified Code(s): A41.9 - Sepsis, unspecified organism (3) LESLIE (acute kidney injury): Presumably secondary to urinary retention. This was seen on CT as well. Avoid all renal toxic medications Secondary to what appears to be diuresis yesterd Hold RICO inhibitor ay we will give 500 cc bolus and increase IV fluids and recheck BMP this afternoon. Note that CK on admission was not elevated Status: Acute (4) Hyperkalemia: Improved. Secondary to acute kidney injury Status: Acute (5) Metabolic acidosis: Secondary to lactic acidemia due to sepsis Status: Acute (6) Macrocytic anemia: B12 and folate level normal Check iron, TIBC, ferritin, stool Hemoccult Secondary to drop from 9.3-7.9 overnight we will recheck this afternoon with electrolytes. Initiate Protonix 40 mg twice daily. This is secondary to significant anemia Status: Acute Additional A&P Information Type 2 diabetes. With renal failure will discontinue long-acting insulin and continue sliding scale Peripheral vascular disease Past history of DVT. Holding patient's Eliquis that he was on at home for history of DVT and on review of records this is greater than 1 year ago. Goals of care: Full code discussed with the patient DVT prophylaxis: SCDs. No anticoagulation secondary to significant anemia Attestations Medical Necessity Statement*: Needs continued hospital stay secondary to sepsis, need for IV antibiotics for UTI, significant severe renal failure. 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
[2021-01-25] MEDS: cefTRIAXone 1,000 MG in sodium chloride 0.9% (plus) 50 ML 100 MG IV ×2 (10:54→22:34)
[2021-01-25 11:11] LABS: Glucose Point of Care 74 mg/dL (70-110)
[2021-01-25 14:13] LABS: Basophils % 0.3 %; Eosinophils # 0.2 10^3/uL (0.0-0.8); Hematocrit 25.2 % (42.0-52.0); Hemoglobin 8.1 g/dL (11.7-16.6); Lymphocytes # 2.4 10^3/uL (0.8-4.8); Lymphocytes % 23.3 %; Mean Corpuscular HGB Conc 32.1 g/dL (30.0-36.0); Mean Corpuscular Hemoglobin 32.3 pg (28.0-34.0); Mean Corpuscular Volume 100.4 fL (80-94); Mean Platelet Volume 9.8 fL (7.4-10.4); Monocytes # 0.6 10^3/uL (0.2-0.9); Monocytes % 5.3 %; Neutrophils # 7.15 10^3/uL (1.8-7.7); Neutrophils % 68.7 %; Nucleated Red Blood Cells % 0 %; Platelet Count 233 10^3/cmm (130-400); Red Blood Count 2.51 10^6/uL (4.1-5.3); Red Cell Distribution Width 14.3 % (12.1-15.1); White Blood Count 10.4 10^3/uL (4.0-10.0)
[2021-01-25 14:46] LABS: Anion Gap 13.6 (5-19); Calcium 9.1 mg/dL (8.5-10.5); Carbon Dioxide 26 mmol/L (22-29); Chloride 105 mmol/L (98-107); Glucose 85 mg/dL (65-115); Osmolality Calculated 324 mOsm/kg (285-295); Potassium 4.6 mmol/L (3.5-5.1); Sodium 140 mmol/L (136-145)
[2021-01-25 14:53] LABS: Blood Urea Nitrogen 111 mg/dL (8-23)
[2021-01-25 17:53] LABS: Glucose Point of Care 82 mg/dL (70-110)
[2021-01-25] MEDS: haloperidol inj 5 mg/mL INJ 1 mL 2 MG IVP (20:42)
[2021-01-25 21:05] LABS: Glucose Point of Care 52 mg/dL (70-110)
[2021-01-25] MEDS: sodium chloride 0.9% 1,000 ML 100 ML IV (21:17)
[2021-01-25 21:27] LABS: Glucose Point of Care 79 mg/dL (70-110)
[2021-01-26] VITALS (9 sets, daily range): BP systolic 100–135; BP diastolic 48–75; PULSE 78–94; RESP 17–19; TEMP 36.4–37.5; O2SAT 93–96
[2021-01-26] MEDS: sodium chloride 0.9% 1,000 ML 100 ML IV (05:28)
[2021-01-26] MEDS: dextrose 50% syringe 50 mL 25 ML IVP (06:48)
[2021-01-26] MEDS: dextrose 5%-sod chloride 0.9% 1,000 ML 75 ML IV ×2 (06:55→21:38)
--- NOTE | 2021-01-26 09:21 | PC.NURSE ---
pt refusd vitals
[2021-01-26 10:35] LABS: Glucose Point of Care 268 mg/dL (70-110)
--- NOTE | 2021-01-26 11:15 | PM.PN ---
Subjective Subjective: Interval history: Martin reports he does not feel great this morning, but cannot really relate why. He did receive some Haldol last night for agitation. Medications: Reviewed: Yes Vitals/I&O/Wt Last Vital Signs Temp 98.7 F 01/26/21 02:00 Pulse 79 01/26/21 02:00 Resp 18 01/26/21 02:00 BP 111/67 01/26/21 02:00 Pulse Ox 95 01/26/21 02:00 01/25/21 01/26/21 01/26/21 22:59 06:59 14:59 Intake Total 2828.75 / 4287.50 868.333 / 5155.833 Output Total 600 / 1200 1200 / 2400 Balance 2228.75 / 3087.50 -331.667 / 2755.833 Weight last 48 hrs Weight 88.451 kg Physical Exam Narrative: EXAM NARRATIVE: General exam no apparent distress Cardiovascular regular rate and rhythm without murmur Lungs clear Abdomen is soft, positive bowel sounds Extremities no cyanosis clubbing or edema Urinary Catheter Management^: Lockett: Cath Placed During This Visit: yes Reason for Continuing Indwelling Catheter: Accurate Measurement of Urinary Output in Critically Ill Patients Urinary Catheter Date of Insertion: 01/24/21 Urinary Catheter Time of Insertion: 20:30 Data : 01/25/21 14:05 01/25/21 14:05 Micro: Microbiology 01/24/21 20:20 Blood Culture - Preliminary Blood NEGATIVE TO DATE 01/24/21 19:37 Blood Culture - Preliminary Blood NEGATIVE TO DATE A&P Assessment and plan (1) Acute cystitis: Associated with sepsis Received vancomycin and Zosyn in the emergency department but after review of previous urine culture results Rocephin was initiated. Continue Rocephin to 1 g IV every 12 hours Urine culture pending Had significant urinary retention and evidence of chronic retention on CT. Lockett was placed. This will need to be continued on discharge. Status: Acute Qualifiers: Hematuria presence: without hematuria Qualified Code(s): N30.00 - Acute cystitis without hematuria (2) Sepsis: Criteria met with lactic acidemia, leukocytosis, hypotension Blood culture negative to date Status: Acute Qualifiers: Sepsis acute organ dysfunction status: without acute organ dysfunction Sepsis type: sepsis due to unspecified organism Qualified Code(s): A41.9 - Sepsis, unspecified organism (3) LESLIE (acute kidney injury): Presumably secondary to urinary retention. This was seen on CT as well. Avoid all renal toxic medications. Continue to hold RICO inhibitor CK was not elevated on admission Status: Acute (4) Hyperkalemia: Awaiting laboratory today Secondary to acute kidney injury Status: Acute (5) Metabolic acidosis: Secondary to lactic acidemia due to sepsis Status: Acute (6) Macrocytic anemia: B12 and folate level normal Mild iron deficiency. Stool Hemoccult pending. Awaiting hemoglobin today Continue Protonix Status: Acute Additional A&P Information Type 2 diabetes. Continue sliding scale insulin Peripheral vascular disease Past history of DVT. Holding patient's Eliquis that he was on at home for history of DVT and on review of records this is greater than 1 year ago. Goals of care: Full code discussed with the patient DVT prophylaxis: SCDs. No anticoagulation secondary to significant anemia Attestations Medical Necessity Statement*: Needs continued hospitalization for IV antibiotics secondary to UTI with sepsis as well as acute kidney injury. 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
--- NOTE | 2021-01-26 12:06 | PC.CHAP ---
Pastoral Care Encounter/Spiritual Assessment Type of Contact [] Declined transactional attorney visit [] Patient/Family/Request visit [] Outpatient visit [] Follow-up visit [] Physician referral [] Code/Alert [X] Routine visit [] Staff referral [] Actively dying [] Patient sleeping [] Family support [] [] Out of room [] Palliative care [] [] Receiving care in room [] Pre-surgical visit [] Trauma [] Long length of stay [] ICU visit [] Other: Relational/Emotional Strength [X] Patient feels connected with others/family/visitors/staff [] Distress [] Loneliness/isolation [] Abandonment Spirituality of Patient [X] Person of Mandi [X] Attends Church of their Mandi [X] Believes in Prayer [] Reads Bible or Spiritism materials [] There are Spiritual issues to be addressed Consumer Credit Counselor Interventions [X] Prayer [X] Active listening [X] Non-anxious presence [X] Spiritual/emotional support [] Crisis/trauma care [] Spiritual counseling [] Bereavement support [] Provided bereavement packet [] Provided Bible/devotional materials [] Provided toy/stuffed animal, coloring book to patient or family member [] Provided Communion [] Anointing/[place] [] Salvation [X] Completed spiritual assessment [] Other: Impact on Illness or Injury [] Angry [] Fearful [X] Anxious [] Often cries [] Exhaustion [] Unable to work [] Unable to attend mu-ism [] Unable to walk/stand [] Unable to read [] Unable to drive [] Unable to eat/drink [] Unable to sleep [] Unable to be with family [] Patient intubated [] Other: Summary SO was present with Pt and did most of the talking. She stated he is somewhat confused, wanting her to take him home. She said the past year has been difficult for them, mainly because they lost their son to Afib last February. Time spent with patient 10m
[2021-01-26 12:08] LABS: Basophils % 0.4 %; Eosinophils # 0.2 10^3/uL (0.0-0.8); Eosinophils % 2.4 %; Hematocrit 25.5 % (42.0-52.0); Hemoglobin 7.9 g/dL (11.7-16.6); Lymphocytes # 1.8 10^3/uL (0.8-4.8); Lymphocytes % 21.5 %; Mean Corpuscular Hemoglobin 31.7 pg (28.0-34.0); Mean Corpuscular Volume 102.4 fL (80-94); Mean Platelet Volume 10.9 fL (7.4-10.4); Monocytes # 0.7 10^3/uL (0.2-0.9); Monocytes % 8.3 %; Neutrophils # 5.52 10^3/uL (1.8-7.7); Neutrophils % 66.8 %; Nucleated Red Blood Cells % 0 %; Platelet Count 247 10^3/cmm (130-400); Red Blood Count 2.49 10^6/uL (4.1-5.3); Red Cell Distribution Width 14.2 % (12.1-15.1); White Blood Count 8.3 10^3/uL (4.0-10.0)
[2021-01-26 12:34] LABS: Alanine Aminotransferase 13 U/L (0-41); Albumin Level 3.2 g/dL (3.5-5.2); Alkaline Phosphatase 42 IU/L (40-130); Anion Gap 11.1 (5-19); Aspartate Amino Transferase 26 U/L (0-40); Blood Urea Nitrogen 77 mg/dL (8-23); Carbon Dioxide 25 mmol/L (22-29); Chloride 112 mmol/L (98-107); Globulin 2.8 g/dL (1.3-4.6); Glucose 79 mg/dL (65-115); Magnesium 2.2 mg/dL (1.7-2.3); Osmolality Calculated 320 mOsm/kg (285-295); Potassium 4.1 mmol/L (3.5-5.1); Sodium 144 mmol/L (136-145); Total Bilirubin 0.2 mg/dL (0.15-1.2)
[2021-01-26] MEDS: pantoprazole DR 40 mg Tablet PO ×2 (13:32→18:02)
[2021-01-26] MEDS: cefTRIAXone 1,000 MG in sodium chloride 0.9% (plus) 50 ML 100 MG IV (13:32)
[2021-01-26] MEDS: tamsulosin 0.4 mg Capsule PO (13:32)
[2021-01-26] MEDS: finasteride 5 mg Tablet PO (13:32)
[2021-01-26 16:35] LABS: Glucose Point of Care 50 mg/dL (70-110)
[2021-01-26 19:27] LABS: Glucose Point of Care 183 mg/dL (70-110)
[2021-01-27] VITALS (8 sets, daily range): BP systolic 99–155; BP diastolic 57–86; PULSE 81–111; RESP 17–20; TEMP 36.3–37.6; O2SAT 91–97
[2021-01-27] MEDS: cefTRIAXone 1,000 MG in sodium chloride 0.9% (plus) 50 ML 100 MG IV ×2 (02:10→13:23)
[2021-01-27 06:17] LABS: Basophils % 0.4 %; Eosinophils # 0.2 10^3/uL (0.0-0.8); Eosinophils % 2.6 %; Hematocrit 26.4 % (42.0-52.0); Hemoglobin 8.3 g/dL (11.7-16.6); Mean Corpuscular HGB Conc 31.4 g/dL (30.0-36.0); Mean Corpuscular Hemoglobin 31.4 pg (28.0-34.0); Monocytes # 0.8 10^3/uL (0.2-0.9); Monocytes % 10.8 %; Neutrophils # 4.37 10^3/uL (1.8-7.7); Neutrophils % 58.9 %; Nucleated Red Blood Cells % 0 %; Platelet Count 257 10^3/cmm (130-400); Red Blood Count 2.64 10^6/uL (4.1-5.3); White Blood Count 7.4 10^3/uL (4.0-10.0)
[2021-01-27 06:41] LABS: Anion Gap 16.5 (5-19); Blood Urea Nitrogen 49 mg/dL (8-23); Carbon Dioxide 21 mmol/L (22-29); Chloride 107 mmol/L (98-107); Glucose 237 mg/dL (65-115); Osmolality Calculated 311 mOsm/kg (285-295); Potassium 4.5 mmol/L (3.5-5.1); Sodium 140 mmol/L (136-145)
[2021-01-27 06:55] LABS: Glucose Point of Care 293 mg/dL (70-110)
--- NOTE | 2021-01-27 08:17 | PC.SOCIAL ---
IMM Update Pg. 2 of IMM updated and reviewed with patient's over the phone who verbalized understanding. Copy left at bedside as well.
[2021-01-27] MEDS: pantoprazole DR 40 mg Tablet PO ×2 (08:40→18:28)
[2021-01-27] MEDS: tamsulosin 0.4 mg Capsule PO (08:40)
[2021-01-27] MEDS: finasteride 5 mg Tablet PO (08:40)
[2021-01-27 11:56] LABS: Glucose Point of Care 180 mg/dL (70-110)
--- NOTE | 2021-01-27 13:22 | P.PN_ITS ---
Subjective Subjective: Interval history: Martin reports he does not know how he is doing. He asked where his is. He is confused. Medications: Reviewed: Yes Vitals/I&O/Wt Last Vital Signs Temp 97.8 F 01/27/21 08:00 Pulse 88 01/27/21 09:31 Resp 18 01/27/21 09:31 BP 147/86 01/27/21 08:00 Pulse Ox 97 01/27/21 09:31 01/26/21 01/27/21 01/27/21 22:59 06:59 14:59 Intake Total 1400 / 2585 250 / 2835 120 / 120 Output Total 1800 / 1800 1900 / 3700 1900 / 1900 Balance -400 / 785 -1650 / -865 -1780 / -1780 Physical Exam Narrative: EXAM NARRATIVE: General exam no apparent distress Cardiovascular regular rate and rhythm without murmur Lungs clear Abdomen is soft, positive bowel sounds Extremities no cyanosis clubbing or edema Urinary Catheter Management^: Lockett: Cath Placed During This Visit: yes Reason for Continuing Indwelling Catheter: Other Urinary Catheter Date of Insertion: 01/24/21 Urinary Catheter Time of Insertion: 20:30 Data : 01/27/21 05:24 01/27/21 05:24 Micro: Microbiology 01/24/21 17:04 Urine Culture - Preliminary Urine,Clean Catch Strep species, alpha hemolytic A&P Assessment and plan (1) Acute cystitis: Associated with sepsis Received vancomycin and Zosyn in the emergency department but after review of previous urine culture results Rocephin was initiated. Currently on Rocephin to 1 g IV every 12 hours Urine culture pending, suggesting alphahemolytic strep. Micro reports that they will have identification and sensitivity tomorrow Had significant urinary retention and evidence of chronic retention on CT. Lockett was placed. This will need to be continued on discharge. Status: Acute Qualifiers: Hematuria presence: without hematuria Qualified Code(s): N30.00 - Acute cystitis without hematuria (2) Sepsis: Criteria met with lactic acidemia, leukocytosis, hypotension Blood culture negative to date Status: Acute Qualifiers: Sepsis acute organ dysfunction status: without acute organ dysfunction Sepsis type: sepsis due to unspecified organism Qualified Code(s): A41.9 - Sepsis, unspecified organism (3) LESLIE (acute kidney injury): Presumably secondary to urinary retention. This was seen on CT as well. Avoid all renal toxic medications. Continue to hold RICO inhibitor CK was not elevated on admission Renal function continues to improve. Creatinine 2.0 today. Needs to continue saline at 75 cc an hour. D5 normal saline will be discontinued as sugar increasing. Needs once more day close monitoring to determine significant resolution of renal failure prior to discharge as well as completion of ID and sensitivity of urine infection. Status: Acute (4) Hyperkalemia: Potassium normal today Secondary to acute kidney injury Status: Acute (5) Metabolic acidosis: Secondary to lactic acidemia due to sepsis Status: Acute (6) Macrocytic anemia: B12 and folate level normal Mild iron deficiency. Stool Hemoccult pending. Awaiting hemoglobin today Continue Protonix Status: Acute Additional A&P Information Type 2 diabetes. Continue sliding scale insulin Peripheral vascular disease Past history of DVT. Holding patient's Eliquis that he was on at home for hi story of DVT and on review of records this is greater than 1 year ago. Goals of care: Full code discussed with the patient DVT prophylaxis: SCDs. No anticoagulation secondary to significant anemia Attestations Medical Necessity Statement*: Needs continued hospitalization for IV antibiotics for UTI as well as continued fluids for renal failure Coding Level of Care Code Acute Home Service Consultant for [facility] Fwd Diagnoses Acute cystitis N30.00 Hematuria presence: without hematuria Sepsis A41.9 Sepsis acute organ dysfunction status: without acute organ dysfunction Sepsis type: sepsis due to unspecified organism LESLIE (acute kidney injury) N17.9 Hyperkalemia E87.5 Metabolic acidosis E87.2 Macrocytic anemia D53.9
[2021-01-27] MEDS: sodium chloride 0.9% 1,000 ML 75 ML IV (14:08)
[2021-01-27 18:23] LABS: Glucose Point of Care 337 mg/dL (70-110)
[2021-01-27] MEDS: haloperidol inj 5 mg/mL INJ 1 mL IM (20:57)
[2021-01-27 21:33] LABS: Glucose Point of Care 130 mg/dL (70-110)
[2021-01-28] VITALS (8 sets, daily range): BP systolic 110–160; BP diastolic 56–84; PULSE 73–107; RESP 16–18; TEMP 36.6–37.4; O2SAT 93–95
[2021-01-28] MEDS: cefTRIAXone 1,000 MG in sodium chloride 0.9% (plus) 50 ML 100 MG IV (02:45)
[2021-01-28] MEDS: haloperidol inj 5 mg/mL INJ 1 mL 2 MG IVP (04:50)
[2021-01-28 05:43] LABS: Basophils % 0.4 %; Eosinophils # 0.1 10^3/uL (0.0-0.8); Eosinophils % 0.5 %; Hemoglobin 8.8 g/dL (11.7-16.6); Lymphocytes # 2.2 10^3/uL (0.8-4.8); Lymphocytes % 24.4 %; Mean Corpuscular HGB Conc 31.4 g/dL (30.0-36.0); Mean Corpuscular Hemoglobin 31.7 pg (28.0-34.0); Mean Corpuscular Volume 100.7 fL (80-94); Mean Platelet Volume 10.7 fL (7.4-10.4); Monocytes # 0.8 10^3/uL (0.2-0.9); Monocytes % 8.9 %; Neutrophils # 5.95 10^3/uL (1.8-7.7); Neutrophils % 65.5 %; Nucleated Red Blood Cells % 0 %; Platelet Count 304 10^3/cmm (130-400); Red Blood Count 2.78 10^6/uL (4.1-5.3); Red Cell Distribution Width 14.2 % (12.1-15.1); White Blood Count 9.1 10^3/uL (4.0-10.0)
[2021-01-28 06:08] LABS: Anion Gap 22.7 (5-19); Blood Urea Nitrogen 30 mg/dL (8-23); Calcium 9.1 mg/dL (8.5-10.5); Carbon Dioxide 17 mmol/L (22-29); Chloride 107 mmol/L (98-107); Glucose 261 mg/dL (65-115); Osmolality Calculated 309 mOsm/kg (285-295); Potassium 4.7 mmol/L (3.5-5.1); Sodium 142 mmol/L (136-145)
--- NOTE | 2021-01-28 06:12 | PC.NURSE ---
PT has been very confused and agitated this shift. PT set bed alarm off >10 times with attempts to get out of bed. PT is confused as to where he is, Nurse and [employer] SALES REPRESENTATIVE have tried multiple times to reorient PT to his situation. Pt removed IV access twice and had to be redirected several times to not pull on his doll catheter, PT refuses SCD's, refuses Telemetry monitoring and refuses to wear gown. Charge nurse notified. Hospitalist Dr. Muller notified and new orders for Haldol 5 mg IM once and Haldol 2 mg IVP Q4H PRN received. PT continued confused behavior after IM dose and 1 time IVP dose.
[2021-01-28 07:00] LABS: Glucose Point of Care 311 mg/dL (70-110)
[2021-01-28] MEDS: insulin glargine 100 units/1 mL 10 UNIT SUBCUT (09:48)
[2021-01-28] MEDS: tamsulosin 0.4 mg Capsule PO (09:50)
[2021-01-28] MEDS: pantoprazole DR 40 mg Tablet PO (09:50)
[2021-01-28] MEDS: finasteride 5 mg Tablet PO (09:50)
[2021-01-28 13:19] LABS: Glucose Point of Care 190 mg/dL (70-110)
--- NOTE | 2021-01-28 14:03 | PC.CHAP ---
Pastoral Care Encounter/Spiritual Assessment Type of Contact [] Declined v belt builder visit [] Patient/Family/Request visit [] Outpatient visit [xx] Follow-up visit [] Physician referral [] Code/Alert [xx] Routine visit [] Staff referral [] Actively dying [] Patient sleeping [] Family support [] [] Out of room [] Palliative care [] [] Receiving care in room [] Pre-surgical visit [] Trauma [] Long length of stay [] ICU visit [] Other: Relational/Emotional Strength [xx] Patient feels connected with others/family/visitors/staff [] Distress [] Loneliness/isolation [] Abandonment Spirituality of Patient [] Person of Mandi [] Attends Scientologist of their Mandi [xx] Believes in Prayer [] Reads Bible or Buddhist materials [] There are Spiritual issues to be addressed Neurodiagnostic Technician Interventions [xx] Prayer [xx] Active listening [] Non-anxious presence [] Spiritual/emotional support [] Crisis/trauma care [] Spiritual counseling [] Bereavement support [] Provided bereavement packet [] Provided Bible/devotional materials [] Provided toy/stuffed animal, coloring book to patient or family member [] Provided Communion [] Anointing/[place] [] Salvation [xx] Completed spiritual assessment [] Other: Impact on Illness or Injury [] Angry [] Fearful [] Anxious [] Often cries [] Exhaustion [] Unable to work [] Unable to attend anabaptist [] Unable to walk/stand [] Unable to read [] Unable to drive [] Unable to eat/drink [] Unable to sleep [] Unable to be with family [] Patient intubated [] Other: Summary was present. Quick prayer per patient's request. Patient then asked v belt builder to get a nurse to help get him settled back into bed. was too frail to help him. Neurodiagnostic Technician complied and nurses immediately went to his room to help him. Time spent with patient 4 minutes
[2021-01-28 14:20] LABS: Anion Gap 19.4 (5-19); Blood Urea Nitrogen 32 mg/dL (8-23); Carbon Dioxide 19 mmol/L (22-29); Chloride 105 mmol/L (98-107); Glucose 184 mg/dL (65-115); Osmolality Calculated 300 mOsm/kg (285-295); Potassium 4.4 mmol/L (3.5-5.1); Sodium 139 mmol/L (136-145)
--- NOTE | 2021-01-28 14:55 | P.DS_ITS ---
Discharge Providers Date of Admission: 01/24/21 19:12 Date of Discharge: January 28, 2021 Attending Provider at Admission: Leyda Lunsford MD Attending Provider at Discharge: Thomas Zurita MD Primary Care Provider: Nneka Lawrence MD Diagnoses at Discharge Discharge Diagnosis (1) Acute cystitis: Status: Acute Qualifiers: Hematuria presence: without hematuria Qualified Code(s): N30.00 - Acute cystitis without hematuria (2) Sepsis: Status: Acute Qualifiers: Sepsis acute organ dysfunction status: without acute organ dysfunction Sepsis type: sepsis due to unspecified organism Qualified Code(s): A41.9 - Sepsis, unspecified organism (3) LESLIE (acute kidney injury): Status: Acute (4) Hyperkalemia: Status: Acute (5) Metabolic acidosis: Status: Acute (6) Macrocytic anemia: Status: Acute Reason for Visit Reason for Visit: [facility] Hospital Course Hospital Course Martin presented to the hospital with increasing confusion on January 24. During his emergency department visit he was found to have significant acute renal failure, and hyperkalemia. Significant bladder distention was noted and Lockett catheter placed for urinary retention. There was concern of sepsis and patient was started on ceftriaxone. Metabolic acidosis was noted as well. He was significantly anemic, and his Eliquis was held. The following day with hydration his creatinine had improved slowly. His BUNs was still 140. Urine culture was growing organisms but patient was afebrile. RICO inhibitor was held, and Rocephin continued. Secondary to drop in hemoglobin to 7.9, Protonix was initiated. Anticoagulation was again held as patient's history of DVT was greater than 1 year ago. Iron saturation was slightly low. B12 and folate levels normal. Stool Hemoccult ordered but unfortunately never collected. During the rest of his hospital stay he gradually improved. He was working with physical therapy. By January 28, his was asking to take him home. She had witnessed him up with physical therapy and believes she could handle him. He was back to his baseline mental status, with underlying dementia. He was able to hydrate himself orally. Hemoglobin had increased to 8.8. Creatinine had improved to 1.7 and potassium was 4.4. It was thought he could be discharged home with close follow-up with his primary care provider and 3 to 4 days. His long-acting insulin was decreased in half secondary to his reduction in kidney function. Neurontin was discontinued. Lisinopril, Lasix and potassium were discontinued. Based upon his repeat laboratory consideration for restarting these medications could occur. Secondary to his significant anemia Eliquis will be held on discharge. Risks of this are noted and discussed. Patient can follow-up with primary care provider and have repeat hemoglobin, and decide at that time whether Eliquis should be resumed. He will follow-up with urology as well. Secondary to significant urinary retention Flomax was initiated, and Lockett will be left in at discharge. Home health will be arranged. Physical Exam Narrative: EXAM NARRATIVE: General exam no apparent distress Cardiovascular regular in rhythm without murmur Lungs clear Abdomen is soft positive bowel sounds. Lockett is noted Extremities no cyanosis clubbing or edema Urinary Catheter Management^: Lockett: Cath Placed During This Visit: yes Reason for Continuing Indwelling Catheter: Accurate Measurement of Urinary Output in Critically Ill Patients Urinary Catheter Date of Insertion: 01/24/21 Urinary Catheter Time of Insertion: 20:30 Discharge Data Data Completed and Pending: Completed Studies During Hospitalization Category Date Time Status CT abdomen pelvis wo con [id number] Urge nt Cat Scan 01/24/21 19:[address] head wo con* 7 [id number] Stat Cat Scan 01/24/21 17:14 Completed XR chest 1V janis ble [id number] Stat Exams 01/24/21 17:12 Completed Pending at discharge Category Date Time Status Blood Culture Sta t Lab 01/24/21 20:20 Results Immunochemical Fe ashwini OCB Routine Lab 01/25/21 07:46 Uncollected Urine Culture Sta t Lab 01/24/21 17:04 Results Labs from last 24 hours 01/28/21 01/28/21 01/28/21 13:52 12:54 06:39 WBC RBC Hgb Hct MCV MCH MCHC RDW Plt Count MPV Neut % (Auto) Lymph % (Auto) [place] % (Auto) Eos % (Auto) Baso % (Auto) Neut # (Auto) Lymph # (Auto) [place] # (Auto) Eos # (Auto) Baso # (Auto) Nucleated RBC % (a uto) Nucleated RBCs # Sodium 139 Potassium 4.4 Chloride 105 Carbon Dioxide 19 L Anion Gap 19.4 H BUN 32 H Creatinine 1.7 H GFR Calculation Not Reportable Glucose 184 H POC Glucose 190 H 311 H Calculated Osmolal ity 300 H Calcium 9.0 01/28/21 01/28/21 01/27/21 05:12 05:12 21:31 WBC 9.1 RBC 2.78 L Hgb 8.8 L Hct 28.0 L MCV 100.7 H MCH 31.7 MCHC 31.4 RDW 14.2 Plt Count 304 MPV 10.7 H Neut % (Auto) 65.5 Lymph % (Auto) 24.4 [place] % (Auto) 8.9 Eos % (Auto) 0.5 Baso % (Auto) 0.4 Neut # (Auto) 5.95 Lymph # (Auto) 2.2 [place] # (Auto) 0.8 Eos # (Auto) 0.1 Baso # (Auto) 0.0 Nucleated RBC % (a uto) 0 Nucleated RBCs # 0.0 Sodium 142 Potassium 4.7 Chloride 107 Carbon Dioxide 17 L Anion Gap 22.7 H BUN 30 H Creatinine 1.9 H GFR Calculation Not Reportable Glucose 261 H POC Glucose 130 H Calculated Osmolal ity 309 H Calcium 9.1 01/27/21 18:02 WBC RBC Hgb Hct MCV MCH MCHC RDW Plt Count MPV Neut % (Auto) Lymph % (Auto) [place] % (Auto) Eos % (Auto) Baso % (Auto) Neut # (Auto) Lymph # (Auto) [place] # (Auto) Eos # (Auto) Baso # (Auto) Nucleated RBC % (a uto) Nucleated RBCs # Sodium Potassium Chloride Carbon Dioxide Anion Gap BUN Creatinine GFR Calculation Glucose POC Glucose 337 H Calculated Osmolal ity Calcium Vitals: Last Vital Signs Temp 99.3 F 01/28/21 12:00 Pulse 101 H 01/28/21 12:00 Resp 18 01/28/21 12:00 BP 129/56 01/28/21 12:00 Pulse Ox 94 01/28/21 12:00 Discharge Plan Discharge Patient Disposition: Home Condition: Stable Prescriptions: New tamsulosin 0.4 mg Capsule 0.4 mg PO DAILY Qty: 30 RF: 0 pantoprazole 40 mg Tablet,Delayed Release (Dr/Ec) 40 mg PO BID Qty: 60 RF: 0 ampicillin 500 mg capsule 500 mg PO QID Qty: 40 RF: 0 Continued finasteride 5 mg tablet See Rx Instructions .ROUTE .COMPLEX Qty: 90 RF: 0 mirtazapine 15 mg tablet See Rx Instructions .ROUTE .COMPLEX Qty: 90 RF: 0 ropinirole 1 mg tablet See Rx Instructions .ROUTE .COMPLEX Qty: 270 RF: 0 tamsulosin 0.4 mg capsule See Rx Instructions .ROUTE .COMPLEX Qty: 90 RF: 0 methenamine hippurate 1 gram tablet See Rx Instructions .ROUTE .COMPLEX Qty: 180 RF: 2 Vitamin C 500 mg Tablet 500 mg PO BID RF: 0 Changed Basaglar KwikPen U-100 Insulin 100 unit/mL (3 mL) insulin pen 20 unit SUBCUT DAILY Qty: 0 RF: 0 Discontinued magnesium 250 mg tablet 250 mg PO DAILY RF: 0 Levemir FlexTouch U-100 Insuln 100 unit/mL (3 mL) insulin pen 35 unit SUBCUT DAILY Qty: 15 RF: 2 Eliquis 5 mg tablet 5 mg PO BID 30 Days Qty: 60 RF: 2 furosemide 40 mg tablet 40 mg PO QAM 30 Days Qty: 30 RF: 2 gabapentin 600 mg tablet 600 mg PO BID 30 Days Qty: 60 RF: 2 lisinopril 5 mg tablet 5 mg PO DAILY 30 Days Qty: 30 RF: 2 metformin 1,000 mg tablet 1,000 mg PO BID 30 Days Qty: 60 RF: 2 potassium chloride 10 mEq tablet extended release See Rx Instructions .ROUTE .COMPLEX Qty: 90 RF: 0 Referrals: Ramirez Paul MD [Physician] - 1 week (Lockett placed for urinary retention) Nneka Lawrence MD [Primary Care Provider] - 1-3 days (CBC, BMP on follow-up) Discharge Diet: Diabetic Discharge Activity: Increase activity as tolerated Activity Restrictions/Additional Instructions: keep Lockett catheter in at discharge. Keep follow-up with your primary care provider and CBC and BMP on follow-up Take all medicines as prescribed. Note the Eliquis has been stopped secondary to significant anemia Home health to be arranged Discharge Attestations Time Spent in Discharge Care*: greater than 30 min Quality Metrics Clinical Quality Measures During this hospital stay, did patient experience: None Coding Level of Care Code Acute Hot Dimpling Machine Operator for g Fwd Diagnoses Acute cystitis N30.00 Hematuria presence: without hematuria Sepsis A41.9 Sepsis acute organ dysfunction status: without acute organ dysfunction Sepsis type: sepsis due to unspecified organism LESLIE (acute kidney injury) N17.9 Hyperkalemia E87.5 Metabolic acidosis E87.2 Macrocytic anemia D53.9
--- NOTE | 2021-01-28 19:46 | PC.NURSE ---
Late entry: Patient was discharged at 1655 to home in stable condition in the care of his . Patient IV was removed earlier in the day by himself. Patient was discharged with doll cath intact. Went over instructions with the how to empty cath, and kathie care. Gave discharge instructions, all questions answered and states verbal understanding.
== END 2021-01-28 16:55 | disposition home or self-care (01) | DRG 872 ==
LOC: ER 19:18 → ICU 19:44 → MEDSURG 01-25 18:35
PROVIDERS: Family Medicine; Admitting Provider Internal Medicine; Emergency Provider Emergency Medicine; PCP Family Medicine; Visit Provider Internal Medicine
DX: A41.9 Sepsis, unspecified organism (principal); N30.00 Acute cystitis without hematuria; N17.9 Acute kidney failure, unspecified; E87.2 Acidosis; I13.0 Hypertensive heart and chronic kidney disease with heart failure and stage 1 through stage 4 chronic kidney disease, or unspecified chronic kidney disease; E87.5 Hyperkalemia; D53.9 Nutritional anemia, unspecified; F32.9 Major depressive disorder, single episode, unspecified; Z79.01 Long term (current) use of anticoagulants; Z86.718 Personal history of other venous thrombosis and embolism; Z79.84 Long term (current) use of oral hypoglycemic drugs; E83.41 Hypermagnesemia; I95.9 Hypotension, unspecified; G25.81 Restless legs syndrome; N18.9 Chronic kidney disease, unspecified; Z87.891 Personal history of nicotine dependence; I50.9 Heart failure, unspecified; E11.22 Type 2 diabetes mellitus with diabetic chronic kidney disease
CPT/HCPCS: 36415; 36416; 36600; 51702; 70450; 71045; 74176; 80048; 80051; 80053; 81001; 82009; 82330; 82550; 82607; 82728; 82746; 82805; 82962; 83540; 83550; 83605; 83690; 83735; 84145; 85025; 87040; 87077; 87086; 87186; 93005; 96365; 96367; 96372; 97161; 97530; 99285; J0696; J1630; J1815 ×2; J2543; J7030; J7040

== ENCOUNTER → 2021-01-31 12:03 | Outpatient (BNVA) | payer MEDICARE, OTHER, SELFPAY | PROVIDERS: PCP Family Medicine; Visit Provider Family Medicine | DX: N39.0 Urinary tract infection, site not specified (principal); I50.9 Heart failure, unspecified; N17.9 Acute kidney failure, unspecified; D53.9 Nutritional anemia, unspecified; L97.911 Non-pressure chronic ulcer of unspecified part of right lower leg limited to breakdown of skin; L97.921 Non-pressure chronic ulcer of unspecified part of left lower leg limited to breakdown of skin; M54.10 Radiculopathy, site unspecified; Z86.718 Personal history of other venous thrombosis and embolism; R33.9 Retention of urine, unspecified; R29.898 Other symptoms and signs involving the musculoskeletal system; E11.42 Type 2 diabetes mellitus with diabetic polyneuropathy; Z79.4 Long term (current) use of insulin; Z74.09 Other reduced mobility; Z78.9 Other specified health status; Z09 Encounter for follow-up examination after completed treatment for conditions other than malignant neoplasm; I50.42 Chronic combined systolic (congestive) and diastolic (congestive) heart failure | CPT/HCPCS: 81000; 87086 ==

== ENCOUNTER 2021-02-02 14:23 | Outpatient (CLI) | payer MEDICARE, OTHER, SELFPAY | END 2021-02-02 14:24 | disposition home or self-care (01) | LOC: WOUND 14:24 | PROVIDERS: PCP Family Medicine; Visit Provider Thoracic Surgery (Cardiothoracic Vascular Surgery) | DX: E11.621 Type 2 diabetes mellitus with foot ulcer (principal); L97.412 Non-pressure chronic ulcer of right heel and midfoot with fat layer exposed; L89.892 Pressure ulcer of other site, stage 2 | CPT/HCPCS: 11042 ==

== ENCOUNTER 2021-02-09 12:58 | Emergency (ER) | payer MEDICARE, OTHER, SELFPAY ==
[2021-02-09 12:59] VITALS: BP 124/64; PULSE 82; RESP 16; TEMP 37; O2SAT 96; BMI 26.4
--- NOTE | 2021-02-09 13:11 | XR_ITS ---
WS: [id number] XR chest 1V portable [id number] REASON FOR EXAM: weakness FINDINGS: Compared to previous examination of 01/24/2021, the atelectatic changes in the lung bases, most notably the right, are resolving. No new findings or other interval changes identified. XR/XR chest 1V portable [id number] IMPRESSION: Interval improvement in the atelectasis in both lung bases.
[2021-02-09 13:15] VITALS: BP 124/64; PULSE 82; RESP 16; O2SAT 93
--- NOTE | 2021-02-09 13:19 | PC.NURSE ---
Patient presents with no complaints at this time. Patient is unsure why he is here.
--- NOTE | 2021-02-09 13:26 | CT_ITS ---
WS: [id number] CT HEAD TECHNIQUE: Noncontrast CT of the head obtained from the skullbase to the vertex. CLINICAL INFORMATION: worsening dementia/AMS COMPARISON: CT January 24, 2021 DLP: 1100.[address] scans at [facility] use at least one of these dose optimization techniques: automat ed exposure control; mA and/or kV adjustment per patient size (includes targeted exams where dose is matched to clinical indication); or iterative reconstruction. FINDINGS: No evidence of intracranial hemorrhage or mass effect. Ventricular system and basal cisterns are tai nt. Moderate small vessel changes with moderate parenchymal volume loss. Intracranial vascular calcif ications. 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 Paranasal sinuses and mastoid air cells are well aerated. .Normal visualized soft tissues. Benign mumtaz cisterna magna CT/CT head wo con* [id number] IMPRESSION: 1. No evidence of intracranial hemorrhage or mass effect. 2. Moderate small vessel changes. Moderate parenchymal volume loss. 3. 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 4. No significant changes from January 24, 2021.
--- NOTE | 2021-02-09 13:26 | ED_ITS ---
HPI - Weakness General: Chief complaint: Weakness Stated complaint: WEAKNESS Time Seen by Provider: 02/09/21 13:08 Source: EMS Mode of arrival: EMS Limitations: altered mental status (baseline dementia) History of Present Illness: HPI Narrative: Patient is an 85-year-old male with a history of recurrent UTI, BPH, dementia, DM, CHF, CKD, history of DVT, and HTN here after home health recommended he come to the emergency department for evaluation. After speaking to patient's she states that patient has been sleepier than normal today. Patient himself has no physical complaints. Patient was admitted to our hospital on 01/24/2021 with diagnoses of urosepsis, LESLIE, hyperkalemia, hypermagnesium, anemia, and bladder distention/urinary retention. He has followed up with urology since that visit. They discussed shelter placement during his last hospitalization but wanted to take him home. He has Home Health services. Review of Systems General: Reports: 10 or more systems reviewed and unremarkable except in HPI and below (patient answers no to all ROS questions) PFSH ED PFSH: Medical History (Updated 02/09/21 @ 16:22 by DEANN Harvey) Chronic CHF (congestive heart failure) CKD (chronic kidney disease) Depression, major Hx of deep venous thrombosis Hypertension Neuropathy Recurrent UTI Restless leg syndrome Type 2 diabetes mellitus Urgency incontinence Urinary retention Surgical History H/O neck surgery H/O rotator cuff surgery Family History Mother Cancer Sister Cancer Diabetes Brother Diabetes Father Patient killed Social History Smoking and tobacco status: former smoker Alcohol intake: never Marital status: Current occupational status: retired History of recent travel: No Current gender identity: Male Physical Exam Const: COMMON NORMALS: no acute distress, average body habitus, patient oriented x3, healthy appearing, alert and well nourished EXAM LIMITATIONS: altered mental status (some baseline dementia) GENERAL APPEARANCE: cooperative ORIENTATION/CONSCIOUSNESS: Yes awake, Yes oriented to person, Yes oriented to place and Yes oriented to time OTHER: Patient can tell me his name, , he knows he is at [facility], he knows his zip code, and knows the president. He does not know what year it is. HENMT: COMMON NORMALS: normocephalic and atraumatic HEAD & SCALP: normo cephalic and atraumatic Resp: COMMON NORMALS: normal respiratory effort and clear to auscultation bilaterally AUSCULTATION: clear to auscultation bilaterally Cardio: COMMON NORMALS: regular rate and regular rhythm RATE: regular rate RHYTHM: regular rhythm GI: COMMON NORMALS: Normal to inspection, nondistended, normoactive bowel sounds present, Soft to palpation, No hepatosplenomegaly present and no masses PALPATION: Yes Soft to palpation, Yes Tenderness to palpation present (GI) (suprapubic) and Yes No hepatosplenomegaly present : OTHER: doll catheter present with light yellow urine in bag Extremity: COMMON NORMALS: normal to inspection and no pedal edema Neuro: DENISE COMA SCALE: document GCS findings Denise coma scale eye opening: Spontaneous Denise coma scale verbal response: Orientated Denise coma scale motor response: Obey commands Denise coma scale total score: 15 COMMON NORMALS: patient oriented x3, CN's II-XII intact bilaterally, moves all extremities, no focal motor deficits and no sensory deficits noted SENSORIUM/ORIENTATION: Yes alert, Yes oriented to person, Yes oriented to place and Yes oriented to time GAIT: Yes Unable to assess gait MOTOR EXAM: 5/5 motor strength present throughout Skin: NARRATIVE SKIN EXAM: normal skin exam Course Vital Signs: Vital signs: Vital Signs Temperature 98.6 F 02/09/21 12:59 Pulse Rate 79 02/09/21 15:11 Respiratory Rate 17 02/09/21 15:11 Blood Pressure 121/83 02/09/21 15:11 Pulse Oximetry 96 02/09/21 15:11 MDM - Weakness MDM Narrative: Medical decision making narrative: I do not see anything on patient's labs that would warrant re-admission following his discharge on 01/28. He has had appropriate follow-up with urology. Patient's anemia has not worsened. He does not have any evidence of LESLIE today. Potassium and magnesium are normal. Glucose is chronically elevated-no signs of DKA. Initial troponin is 72 with a negative delta. Initial and repeat EKG showed no ischemic changes. Vital signs have been normal. He seems to be at his normal mentation status given his baseline dementia. He is getting to the point where he cannot care for himself and cannot do it either. Case management has spoken to family along with patient and he is unfortunately is his own guardian and refuses to go to a shelter. and daughter state they will continue to care for him at home and try to obtain guardianship. They will continue Home Health services in the meantime. Lab Data: Labs: Lab Results 02/09/21 02/09/21 02/09/21 Range/Units 13:14 13:14 13:14 WBC Cancelled Corrected WBC Cancelled RBC Cancelled Hgb Cancelled Hct Cancelled MCV Cancelled MCH Cancelled MCHC Cancelled RDW Cancelled Plt Count Cancelled MPV Cancelled Gran % Cancelled Neut % (Auto) Cancelled Lymph % (Auto) Cancelled Cherry % (Auto) Cancelled Eos % (Auto) Cancelled Baso % (Auto) Cancelled Neut # (Auto) Cancelled Lymph # (Auto) Cancelled Cherry # (Auto) Cancelled Eos # (Auto) Cancelled Baso # (Auto) Cancelled Absolute Gran (aut o) Cancelled Nucleated RBC % (a uto) Cancelled Nucleated RBCs # Cancelled Sodium 131 L (136-145) mmol/L Potassium 4.6 (3.5-5.1) mmol/L Chloride 96 L (98-107) mmol/L Carbon Dioxide 26 (22-29) mmol/L Anion Gap 13.6 (5-19) BUN 20 (8-23) mg/dL Creatinine 1.6 H (0.7-1.2) mg/dL GFR Calculation Not Reportable Glucose 312 H (65-115) mg/dL Calculated Osmolal ity 286 (285-295) mOsm/k g Lactic Acid 1.2 (0.5-2.2) mmol/L Calcium 8.7 (8.5-10.5) mg/dL Magnesium 2.0 (1.7-2.3) mg/dL Total Bilirubin 0.2 (0.15-1.2) mg/dL AST 8 (0-40) U/L ALT 9 (0-41) U/L Alkaline Phosphata se 86 (40-130) IU/L Troponin T Baselin e (0-15) ng/L Troponin T 120 Min cap[place] grande band (0-15) ng/L Delta Troponin T (0-10) ABS# NT-Pro-B Natriuret Pep 277 (0-450) pg/mL Total Protein 6.3 L (6.6-8.7) g/dL Albumin 3.3 L (3.5-5.2) g/dL Globulin 3.0 (1.3-4.6) g/dL Urine Color (Yellow) Urine Appearance (CLEAR) Urine pH (5-7) Ur Specific Gravit y (1.005-1.030) Urine Protein (Negative) Urine Glucose (UA) (Normal) Urine Ketones (Negative) Urine Blood (Negative) Urine Nitrate (Negative) Urine Bilirubin (Negative) Urine Urobilinogen (Negative) mg/dL Ur Leukocyte Mayra ase (Negative) Urine RBC (0-2) /hpf Urine WBC (0-5) /hpf Ur Squamous Epith Cells (0-5) /hpf Amorphous Sediment Urine Bacteria (NONE) /hpf Serum Ketones (Negative) 02/09/21 02/09/21 02/09/21 Range/Units 13:14 13:14 13:14 WBC Corrected WBC RBC Hgb Hct MCV MCH MCHC RDW Plt Count MPV Gran % Neut % (Auto) Lymph % (Auto) Cherry % (Auto) Eos % (Auto) Baso % (Auto) Neut # (Auto) Lymph # (Auto) Cherry # (Auto) Eos # (Auto) Baso # (Auto) Absolute Gran (aut o) Nucleated RBC % (a uto) Nucleated RBCs # Sodium (136-145) mmol/L Potassium (3.5-5.1) mmol/L Chloride (98-107) mmol/L Carbon Dioxide (22-29) mmol/L Anion Gap (5-19) BUN (8-23) mg/dL Creatinine (0.7-1.2) mg/dL GFR Calculation Glucose (65-115) mg/dL Calculated Osmolal ity (285-295) mOsm/k g Lactic Acid (0.5-2.2) mmol/L Calcium (8.5-10.5) mg/dL Magnesium (1.7-2.3) mg/dL Total Bilirubin (0.15-1.2) mg/dL AST (0-40) U/L ALT (0-41) U/L Alkaline Phosphata se (40-130) IU/L Troponin T Baselin e 72 H (0-15) ng/L Troponin T 120 Min [place] band (0-15) ng/L Delta Troponin T (0-10) ABS# NT-Pro-B Natriuret Pep (0-450) pg/mL Total Protein (6.6-8.7) g/dL Albumin (3.5-5.2) g/dL Globulin (1.3-4.6) g/dL Urine Color Yellow (Yellow) Urine Appearance Hazy A (CLEAR) Urine pH 5 (5-7) Ur Specific Gravit y 1.020 (1.005-1.030) Urine Protein Neg (Negative) Urine Glucose (UA) 4+ H (Normal) Urine Ketones Negative (Negative) Urine Blood Neg (Negative) Urine Nitrate Negative (Negative) Urine Bilirubin Neg (Negative) Urine Urobilinogen Norm (Negative) mg/dL Ur Leukocyte Mayra ase Trace H (Negative) Urine RBC 0-4 H (0-2) /hpf Urine WBC 25-40 H (0-5) /hpf Ur Squamous Epith Cells 5-10 H (0-5) /hpf Amorphous Sediment Not Reportable Urine Bacteria 3+ H (NONE) /hpf Serum Ketones Negative (Negative) 02/09/21 02/09/21 Range/Units 14:14 15:33 WBC 11.7 H Corrected WBC RBC 2.77 L Hgb 8.6 L Hct 28.3 L MCV 102.2 H MCH 31.0 MCHC 30.4 RDW 13.9 Plt Count 220 MPV 10.3 Gran % Neut % (Auto) 71.0 Lymph % (Auto) 18.3 Cherry % (Auto) 8.9 Eos % (Auto) 1.1 Baso % (Auto) 0.4 Neut # (Auto) 8.31 H Lymph # (Auto) 2.2 Cherry # (Auto) 1.0 H Eos # (Auto) 0.1 Baso # (Auto) 0.1 Absolute Gran (aut o) Nucleated RBC % (a uto) 0 Nucleated RBCs # 0.0 Sodium (136-145) mmol/L Potassium (3.5-5.1) mmol/L Chloride (98-107) mmol/L Carbon Dioxide (22-29) mmol/L Anion Gap (5-19) BUN (8-23) mg/dL Creatinine (0.7-1.2) mg/dL GFR Calculation Glucose (65-115) mg/dL Calculated Osmolal ity (285-295) mOsm/k g Lactic Acid (0.5-2.2) mmol/L Calcium (8.5-10.5) mg/dL Magnesium (1.7-2.3) mg/dL Total Bilirubin (0.15-1.2) mg/dL AST (0-40) U/L ALT (0-41) U/L Alkaline Phosphata se (40-130) IU/L Troponin T Baselin e (0-15) ng/L Troponin T 120 Min [place] band 71.91 H (0-15) ng/L Delta Troponin T -0.09 L (0-10) ABS# NT-Pro-B Natriuret Pep (0-450) pg/mL Total Protein (6.6-8.7) g/dL Albumin (3.5-5.2) g/dL Globulin (1.3-4.6) g/dL Urine Color (Yellow) Urine Appearance (CLEAR) Urine pH (5-7) Ur Specific Gravit y (1.005-1.030) Urine Protein (Negative) Urine Glucose (UA) (Normal) Urine Ketones (Negative) Urine Blood (Negative) Urine Nitrate (Negative) Urine Bilirubin (Negative) Urine Urobilinogen (Negative) mg/dL Ur Leukocyte Mayra ase (Negative) Urine RBC (0-2) /hpf Urine WBC (0-5) /hpf Ur Squamous Epith Cells (0-5) /hpf Amorphous Sediment Urine Bacteria (NONE) /hpf Serum Ketones (Negative) Imaging Data^: CXR: Radiologist's impression: [address] [address] XRay Report Signed Patient: Martin Schultz Unit #: [id number] : 1935 Age/Sex: 85 / M ADM Date: 02/09/21 Loc: ER Room/Bed: Attending Dr: Ordering Provider/Ordering MD: Alicia Farah Date of Service: 02/09/21 Procedure(s): XR chest 1V portable 35789 Accession Number(s): [id number] Report Number: [id number] WS: [id number] XR chest 1V portable [id number] REASON FOR EXAM: weakness FINDINGS: Compared to previous examination of 01/24/2021, the atelectatic changes in the lung bases, most notably the right, are resolving. No new findings or other interval changes identified. XR/XR chest 1V portable [id number] IMPRESSION: Interval improvement in the atelectasis in both lung bases. Dictated By: Peter Vogt Jr, MD Signed By: Peter Vogt Jr, MD Signed Date/Time: 02/09/211338 DD/ 38 CT Head: Radiologist's impression: [facility] [address] [address] CT Scan Report Signed Patient: Martin Schultz Unit #: [id number] : 1935 Age/Sex: 85 / M ADM Date: 02/09/21 Loc: ER Room/Bed: Attending Dr: Ordering Provider/Ordering MD: Alicia Farah Date of Service: 02/09/21 Procedure(s): CT head wo con* [id number] Accession Number(s): [id number] Report Number: [id number] WS: [id number] CT HEAD TECHNIQUE: Noncontrast CT of the head obtained from the skullbase to the vertex. CLINICAL INFORMATION: worsening dementia/AMS COMPARISON: CT January 24, 2021 DLP: 1100.[address] scans at [facility] use at least one of these dose optimization techniques: automated exposure control; mA and/or kV adjustment per patient size (includes targeted exams where dose is matched to clinical indication); or iterative reconstruction. FINDINGS: No evidence of intracranial hemorrhage or mass effect. Ventricular system and basal cisterns are patent. Moderate small vessel changes with moderate parenchymal volume loss. Intracranial vascular calcifications. 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 Paranasal sinuses and mastoid air cells are well aerated. .Normal visualized soft tissues. Benign mumtaz cisterna magna CT/CT head wo con* [id number] IMPRESSION: 1. No evidence of intracranial hemorrhage or mass effect. 2. Moderate small vessel changes. Moderate parenchymal volume loss. 3. 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 4. No significant changes from January 24, 2021. Dictated By: Eugene Sevilla MD Signed By: Eugene Sevilla MD Signed Date/Time: 02/09/21 1403 DD/ 1358 EKG Data^: EKG 1: EKG interpretation date: 02/09/21 EKG interpretation time: 13:30 Interpretation: Sinus rhythm with sinus arrhythmia Rate [address] elevation or depression changes noted Signed off by Dr. Nair EKG 2: EKG interpretation date: 02/09/21 EKG interpretation time: 15:10 Interpretation: Sinus rhythm with sinus arrhythmia Rate [address] elevation or depression changes noted No changes when compared to EKG performed earlier on same visit Discharge Plan Discharge Patient Disposition: Home Clinical Impression: Chronic anemia, Physical deconditioning Dementia Qualifiers: Dementia type: unspecified type Dementia behavioral disturbance: without behavioral disturbance Qualified Code(s): F03.90 - Unspecified dementia without behavioral disturbance Condition: Stable Prescriptions: No Action ropinirole 1 mg tablet See Rx Instructions .ROUTE .COMPLEX Qty: 270 RF: 0 miscellaneous medical supply Misc See Rx Instructions miscellaneous .COMPLEX Qty: 1 RF: 0 miscellaneous medical supply Misc See Rx Instructions miscellaneous .COMPLEX Qty: 1 RF: 0 ascorbic acid (vitamin C) [Vitamin C] 500 mg Tablet 500 mg PO BID@899,1999 RF: 0 lisinopril 5 mg tablet 5 mg PO DAILY@0900 RF: 0 furosemide 40 mg tablet 40 mg PO DAILY@0900 PRN (Reason: edema) RF: 0 potassium chloride 10 mEq tablet extended release 10 meq PO DAILY@0900 RF: 0 methenamine hippurate 1 gram tablet 1 g PO BID@ RF: 0 tamsulosin 0.4 mg capsule 0.4 mg PO DAILY@0900 RF: 0 pantoprazole 40 mg tablet,delayed release (DR/EC) 40 mg PO BID@ RF: 0 mirtazapine 15 mg tablet 15 mg PO BEDTIME@1999 RF: 0 finasteride 5 mg tablet 5 mg PO DAILY@0900 RF: 0 Basaglar KwikPen U-100 Insulin 100 unit/mL (3 mL) insulin pen 30 unit SUBCUT DAILY@0900 RF: 0 Discharge Orders: Discharge ED (Routine); Ordered 02/09/21 Ordered By: Alicia Farah Referrals: Nneka Lawrence MD [Primary Care Provider] - Activity Restrictions/Additional Instructions: To patient's /daughter: Case management has spoken to the patient in regards to shelter placement as he is not able to care for himself however patient is his own guardian and he refuses to go at this time. I recommend you speak to his primary care physician and try to gain guardianship of patient to help facilitate this. Continue Home Health services. You may bring patient back to the emergency department for any concerns you may have. Coding Level of Care Code ED Dietetic Tech for Chg Fwd Exam Detailed
[2021-02-09 13:39] LABS: Lactic Sepsis W/Reflex 1.2 mmol/L (0.5-2.2)
[2021-02-09 13:40] LABS: Add Urine Microscopic? YES; Bilirubin Urine Neg (Negative); Blood Urine Neg (Negative); Glucose Urine UA 4+ (Normal); Ketones Urine Negative (Negative); Leukocyte Esterase Urine Trace (Negative); Nitrate Urine Negative (Negative); Protein Urine Neg (Negative); Urine Appearance Hazy (CLEAR); Urine Color Yellow (Yellow); Urobilinogen Urine Norm (Negative); pH Urine 5 (5-7)
[2021-02-09 13:54] LABS: Troponin(5th) Baseline 72 ng/L (0-15)
[2021-02-09 13:57] LABS: RBC Urine 0-4 /hpf (0-2); WBC Urine 25-40 /hpf (0-5)
[2021-02-09 13:58] LABS: Add Urine Culture? Yes; Bacteria Urine 3+ /hpf
[2021-02-09 14:03] LABS: Alanine Aminotransferase 9 U/L (0-41); Albumin Level 3.3 g/dL (3.5-5.2); Alkaline Phosphatase 86 IU/L (40-130); Anion Gap 13.6 (5-19); Aspartate Amino Transferase 8 U/L (0-40); Blood Urea Nitrogen 20 mg/dL (8-23); Calcium 8.7 mg/dL (8.5-10.5); Carbon Dioxide 26 mmol/L (22-29); Chloride 96 mmol/L (98-107); Glucose 312 mg/dL (65-115); NT Pro B Type Natriuretic Pept 277 pg/mL (0-450); Osmolality Calculated 286 mOsm/kg (285-295); Potassium 4.6 mmol/L (3.5-5.1); Sodium 131 mmol/L (136-145); Total Bilirubin 0.2 mg/dL (0.15-1.2); Total Protein 6.3 g/dL (6.6-8.7)
[2021-02-09 14:21] LABS: Basophils # 0.1 10^3/uL (0.0-0.1); Basophils % 0.4 %; Eosinophils # 0.1 10^3/uL (0.0-0.8); Eosinophils % 1.1 %; Hematocrit 28.3 % (42.0-52.0); Hemoglobin 8.6 g/dL (11.7-16.6); Lymphocytes # 2.2 10^3/uL (0.8-4.8); Lymphocytes % 18.3 %; Mean Corpuscular HGB Conc 30.4 g/dL (30.0-36.0); Mean Corpuscular Volume 102.2 fL (80-94); Mean Platelet Volume 10.3 fL (7.4-10.4); Monocytes % 8.9 %; Neutrophils # 8.31 10^3/uL (1.8-7.7); Nucleated Red Blood Cells % 0 %; Platelet Count 220 10^3/cmm (130-400); Red Blood Count 2.77 10^6/uL (4.1-5.3); Red Cell Distribution Width 13.9 % (12.1-15.1); White Blood Count 11.7 10^3/uL (4.0-10.0)
[2021-02-09 14:44] LABS: Ketone (Acetest) Serum Negative (Negative)
[2021-02-09] MEDS: insulin regular-human 100 units/1 mL 5 UNIT IVP (14:46)
[2021-02-09 15:11] VITALS: BP 121/83; PULSE 79; RESP 17; O2SAT 96
--- NOTE | 2021-02-09 15:11 | ECG_ITS ---
[facility] Test Date: 2021-02-09 Pat Name: Martin Schultz Department: Room: Gender: Male Director Of Oncology: : 1935 Requested By: Alicia Farah Order Number: [id number] Reading MD: LIZA DAS Measurements Intervals [place] Rate: 80 P: 48 ND: 181 QRS: 28 QRSD: 83 T: 66 QT: 374 QTc: 433 Interpretive Statements SINUS RHYTHM WITH SINUS ARRHYTHMIA Compared to ECG 02/09/2021 13:30:06 No significant changes Electronically Signed On 02-09-2021 21:17:06 CDT by LIZA DAS [id number]
[2021-02-09 16:04] LABS: Troponin 5 2HR 71.91 ng/L (0-15)
[2021-02-09 16:09] LABS: Troponin 5 2HR Delta -0.09 ABS# (0-10)
[2021-02-09 16:32] VITALS: BP 117/55; PULSE 81; RESP 14; O2SAT 94
--- NOTE | 2021-02-09 19:11 | ECG_ITS ---
[facility] Test Date: 2021-02-09 Pat Name: Martin Schultz Department: Room: Gender: Male Document Photographer: : 1935 Requested By: Alicia Farah Order Number: [id number] Reading MD: LIZA DAS Measurements Intervals [place] Rate: 80 P: 58 AL: 187 QRS: 34 QRSD: 90 T: 61 QT: 364 QTc: 421 Interpretive Statements SINUS RHYTHM WITH SINUS ARRHYTHMIA Compared to ECG 01/24/2021 17:46:24 No significant changes Electronically Signed On 02-09-2021 21:17:29 CDT by LIZA DAS [email or web address]
== END 2021-02-09 16:33 | disposition home or self-care (01) ==
PROVIDERS: Emergency Provider Physician Assistant; PCP Family Medicine
DX: D64.89 Other specified anemias (principal); F03.90 Unspecified dementia, unspecified severity, without behavioral disturbance, psychotic disturbance, mood disturbance, and anxiety; I11.0 Hypertensive heart disease with heart failure; I50.9 Heart failure, unspecified; E11.40 Type 2 diabetes mellitus with diabetic neuropathy, unspecified; Z87.891 Personal history of nicotine dependence
CPT/HCPCS: 36415; 70450; 71045; 80053; 81001; 82009; 83605; 83735; 83880; 84484; 85025; 87040; 87086; 93005; 96374; 99284; J1815

== ENCOUNTER 2021-02-10 13:11 | Outpatient (CLI) | payer MEDICARE, OTHER, SELFPAY | END 2021-02-10 13:12 | disposition home or self-care (01) | LOC: WOUND 13:16 | PROVIDERS: PCP Family Medicine; Visit Provider Thoracic Surgery (Cardiothoracic Vascular Surgery) | DX: E11.621 Type 2 diabetes mellitus with foot ulcer (principal); L97.412 Non-pressure chronic ulcer of right heel and midfoot with fat layer exposed; L89.892 Pressure ulcer of other site, stage 2; L89.152 Pressure ulcer of sacral region, stage 2 | CPT/HCPCS: 11042 ==